=== PATIENT | female | born 1945 | race Caucasian/White ===

== ENCOUNTER → 2018-10-21 11:01 | Outpatient (CLI) | payer MEDICARE, SELFPAY ==
--- NOTE | 2018-10-21 11:16 | VDLE_ITS ---
Reason For Study: LLE Pain RIGHT LEFT CFV is compressible, spontaneous, phasic, GSV is normal. competent and demonstrates normal Acute deep vein thrombosis is noted in the augmentation. left common femoral vein. Procedure Acute deep vein thrombosis is noted in the Exam performed in department. left femoral vein. A preliminary report was called and/or faxed Acute deep vein thrombosis is noted in the to [facility] office and [facility] office. left popliteal vein. Acute deep vein thrombosis is noted in the left peroneal vein. Acute deep vein thrombosis is noted in the left posterior tibial vein. Peroneal veins not well visualized. Interpretation Summary Acute deep venous thrombosis left common femoral, femoral, popliteal, peroneal and posterior tibial veins. Normal flow patterns right common femoral vein Patent and compressible left great saphenous vein Ordering Physician: Sonny Andrew Referring Physician: MD Tien Vivar Performed By: Margi Whitley RVT
== END ==
PROVIDERS: Family Provider Preventive Medicine Occupational Medicine; PCP Preventive Medicine Occupational Medicine; Referring Provider Physician Assistant Surgical; Visit Provider Physician Assistant Surgical
DX: M79.605 Pain in left leg (principal)
CPT/HCPCS: 93971

== ENCOUNTER 2018-10-21 12:47 | Emergency (ER) | payer MEDICARE, SELFPAY ==
[2018-10-21 12:48] VITALS: BP 167/90; PULSE 80; RESP 18; TEMP 37.2; O2SAT 98; BMI 35.4
--- NOTE | 2018-10-21 14:29 | CASEMGMT ---
Case Management Progress Note: This group underwriter s/w ER Dr Rucker and states patient with Dx DVT and wanting to verify if patient's insurance covers Lovenox. This group underwriter pulled up [employer] Drug List and appears the Generic Enoxaparin sodium is covered. This Automatic Nailing Machine Operator called [employer] , s/w Naomi and verified that the list is correct and the Brand Lovenox is not covered but the Generic Enoxaparin Sodium is covered, Dr Rucker made aware. Mar James RNCM
[2018-10-21] MEDS: Enoxaparin 100 MG/ML Syringe SC (15:17)
--- NOTE | 2018-10-21 15:26 | ED.DCSUM_ITS ---
- ER Visit Summary Date of Service: 10/21/18 Chief Complaint: DVT History of Present Illness: The patient is a 73 F with history of DVTs. She is been on Xarelto for the last year and a half. She was on Coumadin prior to this but states that there was difficulty regulating her INR. She was off Xarelto for 2 days to have a left hip replacement performed 13 days ago. She states Xarelto was then restarted immediately. On review of notes it appears that she was restarted on 20 mg daily. Patient was seen by orthopedics this morning. Surgical site is okay. She was sent for a DVT study due to increased foot and ankle swelling. Patient states she has chronic leg swelling and chronic leg redness that is unchanged from baseline. She denies chest pain or shortness of breath. Physical Examination: Blood pressure is 167/90, otherwise unremarkable. Patient is sitting in her wheelchair. She is in no acute distress. Heart is regular rate and rhythm. Lung sounds clear. Abdomen is soft and nontender. Lower extremity examination reveals 3+ edema on the left lower extremity. She has chronic venous skin changes of the lower leg. She has strong distal pulses. Test Results: [] Emergency Department Course and Treatment: Patient had been sent in for DVT study by orthopedics. That study I have told showed a clot from her groin to her ankle. I spoke with the patient's primary care physician, Dr. Bellamy. He had spoken with the PA for orthopedics. They had sent the patient in for probable admission until anticoagulation can be better managed. I spoke with Dr. Laura, on-call for hematology. He recommends putting the patient on Lovenox twice daily for the next 6 weeks then restarting Xarelto. He does not believe there is a strong indication to admit the patient to the hospital. We have checked with the patient's insurance company and medication will be covered. Patient and have been taught how to do the injections. Dr. Bellamy was updated with the plan as well and is in agreement. Treatment Plan: [] Disposition: Discharge Impression: Left lower extremity DVT status post hip replacement This note was generated with [employer] software. It may contain incorrect words, spelling, and punctuation that were not noted in review of the chart prior to signing ED Disposition - Plan for ED Patient: Disposition: Home or Assisted Living Instructions: ED DVT Prescriptions: Enoxaparin [Lovenox] 100 mg SC Q12@0600,1800 #84 syringe Referrals: Tien Vivar DO [Primary Care Provider] - 1 Week Additional Instructions: STOP YOUR XARELTO. For the next 6 weeks you will be taking enoxaparin (Lovenox) shots instead.
== END 2018-10-21 16:03 | disposition home or self-care (01) ==
PROVIDERS: Emergency Provider Emergency Medicine; Family Provider Preventive Medicine Occupational Medicine; PCP Preventive Medicine Occupational Medicine
DX: I82.402 Acute embolism and thrombosis of unspecified deep veins of left lower extremity (principal); H35.30 Unspecified macular degeneration; Z79.01 Long term (current) use of anticoagulants; Z79.899 Other long term (current) drug therapy; Z86.718 Personal history of other venous thrombosis and embolism; Z96.642 Presence of left artificial hip joint
CPT/HCPCS: 93971; 96372; 99282

== ENCOUNTER → 2021-12-12 04:40 | Outpatient (REF) | payer MEDICARE, MEDICAID, SELFPAY ==
[2021-12-12 08:08] LABS: Valproic Acid (Depakene) Level 79 ug/mL (50-100)
== END ==
LOC: OLS.WCC 04:40
PROVIDERS: PCP Preventive Medicine Occupational Medicine; Referring Provider Family Medicine; Visit Provider Family Medicine
DX: Z79.899 Other long term (current) drug therapy (principal)
CPT/HCPCS: 36415; 80164

== ENCOUNTER → 2021-12-13 04:00 | Outpatient (REF) | payer MEDICARE, MEDICAID, SELFPAY ==
[2021-12-13 09:29] LABS: Hematocrit 35.7 % (37-47); Hemoglobin 11.6 g/dL (12.0-15.0); Mean Corp Hgb Conc 32.5 g/dL (32-36); Mean Corpuscular Volume 98.3 fL (81-99); Platelet Count 183 K/mm3 (150-450); RBC Distribution Width CV 16.9 % (11.6-14.6); RBC Distribution Width SD 61.3 fl (35.1-43.9); Red Blood Count 3.63 M/mm3 (4.2-5.4); White Blood Count 10.5 K/mm3 (4.4-11.0)
[2021-12-13 09:40] LABS: Anion Gap 7 (5-15); BUN 20 mg/dL (7-18); Calcium,Total 9.5 mg/dL (8.5-10.1); Chloride 101 mmol/L (98-107); Creatinine, Serum 0.71 mg/dL (0.55-1.02); EST Glomerular Filtration Rate 84 mL/min (>60); Est Glom Filt Rate - Afr Amer 102 mL/min (>60); Glucose 99 mg/dL (74-106); Potassium 3.8 mmol/L (3.5-5.1); Sodium Level 139 mmol/L (136-145)
== END ==
LOC: OLS.WCC 04:00
PROVIDERS: PCP Preventive Medicine Occupational Medicine; Visit Provider Family Medicine
DX: E87.6 Hypokalemia (principal); E83.42 Hypomagnesemia; E56.9 Vitamin deficiency, unspecified
CPT/HCPCS: 36415; 80048; 85027

== ENCOUNTER 2021-12-17 04:30 | Inpatient (IN) | payer MEDICARE, MEDICAID, SELFPAY ==
[2021-12-17] VITALS (45 sets, daily range): BP systolic 58–159; BP diastolic 22–98; PULSE 77–114; RESP 15–32; TEMP 35.9–36.6; O2SAT 91–100; BMI 35.0; BMI 34.2
--- NOTE | 2021-12-17 04:35 | EKG12_ITS ---
Test Reason : DYSRHYTHMIA Blood Pressure : / mmHG Vent. Rate : 088 BPM Atrial Rate : 088 BPM P-R Int : 144 ms QRS Dur : 092 ms QT Int : 372 ms P-R-T Axes : 052 018 023 degrees QTc Int : 450 ms Normal sinus rhythm Nonspecific ST abnormality Abnormal ECG Confirmed by SIVAKUMAR SPEARS, LOCO ([id number]), society editor JENNIFER BLOUNT ([id number]) on 12/19/2021 11:02:07 AM Referred By: KOLE Confirmed By:LOCO SHAVER MD
--- NOTE | 2021-12-17 04:35 | CT_ITS ---
STUDY: CT BRAIN WITHOUT CONTRAST REASON FOR EXAM: Female, 76 years old. mental status change RADIATION DOSAGE (If Supplied By Facility): CTDIvol = ( 44.99 ) mGy, DLP = ( 914.22 ) mGycm TECHNIQUE: Transaxial CT imaging of the brain was performed without administration of intravenous contrast material. Individualized dose optimization techniques were used for this CT. COMPARISON: No relevant priors. FINDINGS: BRAIN: No acute bleed. No edema. Decreased attenuation in the periventricular white matter bilaterally. Old lacunar infarct in the left basal ganglia versus prominent perivascular space. Dorsey-white matter differentiation is maintained. VENTRICLES AND SULCI: The ventricles and sulci are prominent. EXTRA-AXIAL: No hemorrhage, fluid collection, or mass. CALVARIUM / SKULL BASE: Unremarkable. FACE/SINUSES: Mastoid air cells on the right are opacified, minimally opacified on the left. The paranasal sinuses are clear.. SOFT TISSUES: Unremarkable. CT/Brain/Head without Contrast IMPRESSION: No acute intracranial abnormality. Chronic microvascular ischemic disease. Bilateral mastoid disease, greater on the right. Electronically Signed: Karen Alves MD at 5:18 EDT ,
--- NOTE | 2021-12-17 04:37 | EDS_ITS ---
HPI History of Present Illness Chief Complaint: Alt LOC Detail of Chief Complaint: Patient with altered level of consciousness and dyspnea Informant: EMS and SNF Narrative Narrative: Patient presents to the emergency department via EMS from extended care facility. Patient was being checked on by nursing staff and noted that she was having increased respirations and low oxygen saturation down to 85%. Nurses contacted physician on-call and was ordered 2 L of nasal cannula O2. Patient continued to have increased respirations and was referred to the emergency department. Patient normally alert x1 only. Patient is on Xarelto. She is unable to give me any history. [facility] Medical History (Updated 12/17/21 @ 05:[address] Surjit Pearce, DO) Depression with anxiety GERD (gastroesophageal reflux disease) History of venous thromboembolism Hypertension Obesity Seizures Home Medications ascorbic acid (vitamin C) 500 mg tablet (Vitamin C) 500 mg PO BID 10/21/18 [History Last Taken Unknown] calcium carbonate 600 mg calcium (1,500 mg) tablet 800 mg PO BID 10/21/18 [History Last Taken Unknown] cyanocobalamin (vitamin B-12) 500 mcg tablet 500 mcg PO DAILY 10/21/18 [History Last Taken Unknown] divalproex 500 mg tablet,delayed release (Depakote) 500 mg PO TID 10/21/18 [History Last Taken Unknown] enoxaparin 100 mg/mL subcutaneous syringe 100 mg subcut Q12@0600,1800 ##84 10/21/18 [Rx Last Taken Unknown] methylcellulose (laxative) 500 mg tablet (Fiber Laxative (methylcellulose)) 500 mg PO DAILY 10/21/18 [History Last Taken Unknown] omega 7-spy-ibo-fish oil 900 mg-1,400 mg capsule,delayed release (Fish Oil) 1 ea PO DAILY 10/21/18 [History Last Taken Unknown] rivaroxaban 20 mg tablet (Xarelto) 20 mg PO DAILY 10/21/18 [History Last Taken Unknown] zinc gluconate 50 mg tablet 50 mg PO DAILY 10/21/18 [History Last Taken Unknown] Allergy/AdvReac Type Severity Reaction Status Date / Time Penicillins Allergy Unknown Verified 10/21/18 12:51 Sulfa (Sulfonamide Allergy Unknown Verified 10/21/18 12:51 Antibiotics) Surgical History (Updated 12/17/21 @ 04:[address] Shawna Yanez MD) History of left hip hemiarthroplasty History of total left hip replacement S/P tonsillectomy and adenoidectomy Social History (Updated 12/17/21 @ 04:[address] Shawna Yanez MD) household members: spouse Smoking Status: Never smoker alcohol intake: never substance use type: does not use ROS ROS ED Review of Systems ROS Unobtainable: due to mental status EXAM Physical Exam Narrative Exam Narrative: Patient with eyes open but not following commands. Const Vital Signs: 12/17/21 04:31 12/17/21 04:39 Temperature 96.6 F L Temperature Source Temporal Pulse Rate 98 Respiratory Rate 16 Respiratory Effort Normal Non-Labored Respiratory Pattern Tachypnea Blood Pressure 93/44 L Blood Pressure Mean 60 Pulse Ox 97 Oxygen Delivery Method Room Air Positive well nourished and well developed General Appearance ED: well developed and NAD HEENT Reports TM's clear and moist mucous membranes normocephalic and atraumatic; Negative for trauma or tenderness Tympanic Membrane ED: Yes TM's clear Eyes PERRL and EOMs intact bilaterally General Eye ED: Negative for pale conjunctiva or scleral icterus Neck no lymphadenopathy, supple and no JVD General: Negative for tenderness Chest Wall inspection of chest normal and palpation of chest normal Chest: Negative for tenderness Resp normal respiratory effort and No clear to auscultation bilaterally Resp Narrative: Patient with few rales in the bases. Mild tachypnea. No accessory muscle use or retractions. Effort and Inspection: Negative for respiratory distress or pain with movement Auscultation: Negative for rhonchi, wheezes or diminished lung sounds Cardio regular rate, regular rhythm, S1 normal heart sound and S2 normal heart sound Cardio Narrative: Patient with a 3 out of 6 systolic ejection murmur. Peripheral Pulses: pulses 2+ throughout GI normal to inspection, nondistended, normoactive bowel sounds, soft to palpation, non-tender, non-distended and no masses Back/Spine no CVA tenderness and no thoracic nor lumbar tenderness Extremity normal to inspection Extremity Narrative: +2 edema both lower extremities. General Extremety ED: Yes edema General Extremity: edema Neuro oriented x3, CN's II-XII intact bilaterally, no sensory deficits noted and gait normal Sensorium / Orientation: awake, alert, oriented to person, oriented to place and oriented to time Motor Exam: strength 5/5 throughout and strength abnormal Psych mental status grossly normal Skin no rashes or lesions noted and no wounds MDM MDM MDM Narrative Medical decision making narrative: IV line established on arrival. Patient received a liter normal saline fluid bolus. Patient had times of transient hypotension. Patient has an elevated white count of 18.2. Chemistries unremarkable. Lactate was 1.0. Troponin was normal at 47. BNP was elevated at 856. Valproic acid level was 96. CT scan of the brain without contrast was unremarkable. Patient chest x-ray showed no acute disease process. Patient did have episode of watery foul-smelling stool and that was sent off for C. difficile as well as enteric pathogens. Case will be discussed with hospitalist evaluate patient for admission Lab Data Attestation: I reviewed the patient's lab results. Labs: Laboratory Results - last 24 hr 12/17/21 12/17/21 12/17/21 04:42 04:42 04:42 WBC 18.2 H RBC 3.17 L Hgb 10.3 L Hct 31.2 L MCV 98.4 MCH 32.5 H MCHC 33.0 RDW Std Deviation 56.3 H RDW Coeff of Erica 15.8 H Plt Count 218 MPV 9.7 Neut % (Auto) Not Reportable Absolute Neuts (auto) 15.5 H Absolute Lymphs (auto) 0.55 L Total Counted 100 Neutrophils % (Manual) 51 Band Neutrophils % 18 H Lymphocytes % (Manual) 3 L Monocytes % (Manual) 12 H Metamyelocytes % 10 H Myelocytes % 6 H Diff Path Review May foll Platelet Estimate ADEQUATE RBC Morphology NORM C+C Sodium 136 Potassium 3.5 Chloride 100 Carbon Dioxide 28.0 Anion Gap 8 BUN 42 H Creatinine 1.13 H Estim Creat Clear Calc 44.37 Est GFR (MDRD) Af Amer 60 Est GFR (MDRD) Non-Af 50 L BUN/Creatinine Ratio 37.2 H Glucose 145 H Lactic Acid 1.0 Calcium 8.3 L Total Bilirubin 0.50 AST 28 ALT 20 Alkaline Phosphatase 57 Troponin I High Sens 47 B-Natriuretic Peptide Total Protein 5.4 L Albumin 1.8 L Globulin 3.6 Albumin/Globulin Ratio 0.5 L Valproic Acid 12/17/21 12/17/21 04:42 04:42 WBC RBC Hgb Hct MCV MCH MCHC RDW Std Deviation RDW Coeff of Erica Plt Count MPV Neut % (Auto) Absolute Neuts (auto) Absolute Lymphs (auto) Total Counted Neutrophils % (Manual) Band Neutrophils % Lymphocytes % (Manual) Monocytes % (Manual) Metamyelocytes % Myelocytes % Diff Path Review Platelet Estimate RBC Morphology Sodium Potassium Chloride Carbon Dioxide Anion Gap BUN Creatinine Estim Creat Clear Calc Est GFR (MDRD) Af Amer Est GFR (MDRD) Non-Af BUN/Creatinine Ratio Glucose Lactic Acid Calcium Total Bilirubin AST ALT Alkaline Phosphatase Troponin I High Sens B-Natriuretic Peptide 856.5 H Total Protein Albumin Globulin Albumin/Globulin Ratio Valproic Acid 96 Radiography Chest X-Ray - ED: 1 View Diagnostic Testing: Clinical Impression(s) from Imaging Studies Brain CT 12/17/21 04:35 IMPRESSION: No acute intracranial abnormality. Chronic microvascular ischemic disease. Bilateral mastoid disease, greater on the right. Electronically Signed: Karen Alves MD at 5:18 EDT , Chest X-Ray 12/17/21 04:51 IMPRESSION: No evidence of active intrathoracic disease. Electronically Signed: Karen Alves MD at 5:23 EDT , 1 view chest x-ray obtained interpreted by myself as no acute disease process. Radiology in agreement. EKG Initial EKG: Attestation: I personally reviewed and interpreted this EKG as follows: Comments: Sinus rhythm with a ventricular rate of [address] changes Discharge Plan Triage Chief Complaint: Alt LOC Other Complaint: Shortness of Breath ED Provider: Surjit Pearce Dx/Rx/DC Orders Clinical Impression: Altered mental status, Diarrhea, Acute dehydration, Hypoxemia, Weakness Prescriptions: No Action divalproex [Depakote] 500 MG Tablet.Dr 500 mg PO TID calcium carbonate 600 MG tablet 800 mg PO BID cyanocobalamin (vitamin B-12) 500 MCG tablet 500 mcg PO DAILY ascorbic acid (vitamin C) [Vitamin C] 500 MG tablet 500 mg PO BID methylcellulose (laxative) [Fiber Laxative (methylcellulo)] 500 MG tablet 500 mg PO DAILY zinc gluconate 50 MG tablet 50 mg PO DAILY omega 1-kxa-grw-fish oil [Fish Oil] 1 EACH Capsule. 1 jordan PO DAILY rivaroxaban [Xarelto] 20 MG tablet 20 mg PO DAILY enoxaparin 100 MG/ML syringe 100 mg subcut Q12@0600,1800 Qty: 84 0RF Primary Care Provider: Tien Vivar Referrals: Tien Vivar DO [Primary Care Provider] - Disposition Disposition: Acute Care Hospital [facility]
[2021-12-17 04:51] LABS: Hematocrit 31.2 % (37-47); Hemoglobin 10.3 g/dL (12.0-15.0); Mean Corpuscular Hgb 32.5 pg (27.0-32.0); Mean Corpuscular Volume 98.4 fL (81-99); Mean Platelet Vol. 9.7 fl (6.2-12.0); POSITIVE DIFFERENTIAL YES; Platelet Count 218 K/mm3 (150-450); RBC Distribution Width CV 15.8 % (11.6-14.6); RBC Distribution Width SD 56.3 fl (35.1-43.9); Red Blood Count 3.17 M/mm3 (4.2-5.4); White Blood Count 18.2 K/mm3 (4.4-11.0)
--- NOTE | 2021-12-17 04:51 | RAD_ITS ---
STUDY: X-RAY CHEST REASON FOR EXAM: Female, 76 years old. dyspnea TECHNIQUE: AP portable. 4:44 AM. COMPARISON: None. FINDINGS: LUNGS: No consolidation. No pneumothorax. MEDIASTINUM: Aortic atherosclerotic. CARDIAC SILHOUETTE: Top normal size for technique. BONES AND SOFT TISSUES: Degenerative changes dorsal spine and shoulders. RAD/Chest 1 View (Portable) IMPRESSION: No evidence of active intrathoracic disease. Electronically Signed: Karen Alves MD at 5:23 EDT ,
[2021-12-17] MEDS: 0.9% Normal Saline 1,000 ML 999 ML IV ×2 (05:15→05:45)
[2021-12-17 05:16] LABS: ALB/GLOB Ratio 0.5 RATIO (0.9-2.4); AST(SGOT) 28 U/L (15-37); Alanine Aminotransfer ALT/SGPT 20 U/L (13-56); Albumin, Serum 1.8 g/dL (3.2-5.0); Alkaline Phosphatase 57 U/L (45-117); Anion Gap 8 (5-15); BUN 42 mg/dL (7-18); BUN/Creat Ratio 37.2 RATIO (10-20); Calcium,Total 8.3 mg/dL (8.5-10.1); Chloride 100 mmol/L (98-107); Creatinine, Serum 1.13 mg/dL (0.55-1.02); EST Glomerular Filtration Rate 50 mL/min (>60); Est Glom Filt Rate - Afr Amer 60 mL/min (>60); Estimated Creatinine Clearance 44.37 ml/min; Globulin 3.6 g/dL (2.2-4.2); Glucose 145 mg/dL (74-106); Potassium 3.5 mmol/L (3.5-5.1); Protein, Total 5.4 g/dL (6.4-8.2); Sodium Level 136 mmol/L (136-145); Troponin-I HS (w/2H Reflex) 47 pg/mL (3.0-54.0)
[2021-12-17 05:17] LABS: BNP,B-Type NATRIURETIC PEPTIDE 856.5 pg/mL (0-100)
[2021-12-17 05:18] LABS: Differential Indicated MANUAL DIFF
[2021-12-17 05:23] LABS: Lymphocyte 3 % (19-41); Metamyelocyte 10 % (0-1); Monocyte 12 % (0-10); Myelocyte 6 % (0-0); Neutrophil-Band 18 % (0-5); Neutrophil-Segmented 51 % (47-70); Total Cells Counted 100 (MANUAL DIFF)
[2021-12-17 05:24] LABS: Neutrophil # 15.46 X10^3/uL (2.7-7.7)
[2021-12-17 05:25] LABS: Absolute Lymphocyte Count 0.55 X10^3/uL (0.83-4.51); Absolute Neutrophil Count 15.5 X10^3/uL (2.0-7.7); Lymphocyte # 0.55 X10^3/ul (0.83-4.51); Platelet Estimate ADEQUATE (ADEQ)
[2021-12-17 05:26] LABS: Red Cell Morphology NORM C+C NORMAL (NORM C&C)
[2021-12-17 05:33] LABS: Mucous, Urine 0 SEEN /hpf (<or=2+); Squamous Epithelial Cells - UA 0 SEEN /hpf (5-10)
[2021-12-17 05:39] LABS: Valproic Acid (Depakene) Level 96 ug/mL (50-100)
[2021-12-17 05:55] LABS: Color, Urine Yellow (Yellow); Glucose, Dipstick NEGATIVE (Normal); Urine Bilirubin Dipstick 1 mg/dL (Negative); Urine Clarity Turbid (Clear)
[2021-12-17 05:56] LABS: Bacteria 4+ /hpf (None Seen); Ketone-Dipstick 5 mg/dl (Negative); Leukocyte Esterase-Dipstick 500 /ul (Negative); Nitrite-Dipstick Negative (Negative); Occult Blood-Urine 150 /ul (Negative); Protein-Dipstick 100 mg/dl (Negative); Red Blood Cells-Urine 0-5 SEEN /hpf (0-5); Specific Gravity, Urine 1.015 (1.002-1.030); Urine Urobilinogen 4 mg/dl (Normal); White Blood Cells >100 SEEN /hpf (0-5)
--- NOTE | 2021-12-17 05:59 | PCM.HP.STD ---
HPI - General General Date of Admission: 12/17/21 Date of Service: 12/17/21 Chief Complaint: Encephalopathy, Diarrhea. HPI Narrative The patient is a 76 y/o F w/ PMHx: Seizure disorder, Hx VTE on xarelto, HTN, Obesity, Anxiety and Depression, GERD who presents to the [facility] ED from SNF on 12/17/21 with history of confusion and noted hypoxia with increased respiratory rate with oxygen saturations down to 85% at her facility prompting nurses to contact the on-call physician who ordered supplementation and referral to ED for evaluation. Patient baseline is ANO x1. While in the emergency room patient was noted to have profound diarrhea, foul smelling and profuse. Work-up in the ED included T96.6, heart rate 98, BP 93/44, respiratory rate 16, 97% on room air despite concerns for hypoxia at facility, CBC with WBC 18.2, hemoglobin 10.3, platelet 218 without differential performed, CMP with BUN/42/1.13, glucose 145, unremarkable hepatic profile, troponin 47, BNP 856.5, lactic acid 1.0, blood culture x2 pending per ED, chest x-ray with no acute cardiopulmonary findings, CT brain with no acute intracranial abnormality with chronic microvascular ischemic disease with bilateral mastoid disease, greater on the right, EKG SR without acute evidence of ischemia, valproic acid level 96, C. difficile and enteric pending upon evaluation. Patient being administered NS bolus currently. [facility] Medical History (Updated 12/17/21 @ 05:[address] Surjit Pearce, ) Depression with anxiety GERD (gastroesophageal reflux disease) History of venous thromboembolism Hypertension Obesity Seizures Home Medications divalproex 500 mg tablet,delayed release (Depakote) 500 mg PO TID 10/21/18 [History Last Taken Unknown] rivaroxaban 20 mg tablet (Xarelto) 20 mg PO DAILY 10/21/18 [History Last Taken Unknown] zinc gluconate 50 mg tablet 50 mg PO DAILY 10/21/18 [History Last Taken Unknown] alprazolam 0.25 mg tablet 0.25 mg PO BID 12/17/21 [History Last Taken Unknown] buspirone 7.5 mg tablet 7.5 tab TID 12/17/21 [History Last Taken Unknown] carvedilol 3.125 mg tablet 3.125 tab DAILY 12/17/21 [History Last Taken Unknown] lacosamide 200 mg tablet (Vimpat) 200 mg PO BID 12/17/21 [History Last Taken Unknown] mirtazapine 15 mg tablet (Remeron) 15 mg PO QHS 12/17/21 [History Last Taken Unknown] pantoprazole 40 mg tablet,delayed release 40 tab PO BID 12/17/21 [History Last Taken Unknown] Allergy/AdvReac Type Severity Reaction Status Date / Time Penicillins Allergy Unknown Verified 12/17/21 06:09 Sulfa (Sulfonamide Allergy Unknown Verified 12/17/21 06:09 Antibiotics) Family History (Updated 12/17/21 @ 06:[address] Shawna Yanez MD) Mother Heart disease Father Heart disease Surgical History (Updated 12/17/21 @ 04:[address] Shawna Yanez MD) History of left hip hemiarthroplasty History of total left hip replacement S/P tonsillectomy and adenoidectomy Social History (Updated 12/17/21 @ 06:[address] Shawna Yanez MD) housing: assisted Smoking Status: Never smoker alcohol intake: never substance use type: does not use ROS Review of Systems ROS Unobtainable: due to encephalopathy Vital Signs Vital Signs Vital Signs: 12/17/21 04:31 12/17/21 04:39 Temperature 96.6 F L Temperature Source Temporal Pulse Rate 98 Respiratory Rate 16 Respiratory Effort Normal Non-Labored Respiratory Pattern Tachypnea Blood Pressure 93/44 L Blood Pressure Mean 60 Pulse Ox 97 Oxygen Delivery Method Room Air Weight Weight: 244 lb 4.355 oz Body Mass Index (BMI) 35.0 Physical Exam Narrative hysical Examination: General: Comatose in appearance, but upon questioning although garbled with dry mouth was able to answer some questions, could give her name, could not tell year, month, present but baseline ANOx1 per facility, following some commands now, severely dehydrated appearance, seated upright in the ED bed. Skin: Normal color, normal turgor, no icterus, no cyanosis except occasional staged ecchymoses and BL LE, L>R chronic venous stasis skin changes. HEENT: AT/NC, EOM appear intact, PERRLA except L>R pupil by ~ 2 mm, severely dry MM, no carotid bruits, normal JVD noted. Lungs: Diminished, greater bases, mildly increased respiratory rate, no distress, no rhonchi or wheezing. Heart: Mildly tachycardic with regular rhythm; no gallop, rub audible, + SM. Abdomen: Soft, mild generalized discomfort with palpation, ND, hyperactive BS, no HSM. Extremities: No cyanosis, no clubbing, bilateral lower extremity 1-2+ pitting edema noted, see skin, suspect chronic. Neurological: Comatose in appearance, but upon questioning although garbled with dry mouth was able to answer some questions, could give her name, could not tell year, month, present but baseline ANOx1 per facility, following some commands now, severely dehydrated appearance, seated upright in the ED bed, cognitive function decreased from baseline but improving as noted, baseline ANO x1 status only; pupils equally reactive to light and accommodation with L>R pupil by ~ 2 mm, cranial nerves grossly normal otherwise, moving all 4 extremities, strength severely global decrease secondary to acute presentation. Psychiatric: Affect appears fatigued, flat, mentation improving, no acute evidence of depressive or anxiety feelings. Results Lab / Micro Data Result Diagrams: 12/17/21 04:42 12/17/21 04:42 Labs: Laboratory Results - last 24 hr 12/17/21 04:42: WBC 18.2 H, RBC 3.17 L, Hgb 10.3 L, Hct 31.2 L, MCV 98.4, MCH 32.5 H, MCHC 33.0, RDW Std Deviation 56.3 H, RDW Coeff of Erica 15.8 H, Plt Count 218, MPV 9.7, Neut % (Auto) Not Reportable, Absolute Neuts (auto) 15.5 H, Absolute Lymphs (auto) 0.55 L, Total Counted 100, Neutrophils % (Manual) 51, Band Neutrophils % 18 H, Lymphocytes % (Manual) 3 L, Monocytes % (Manual) 12 H, Metamyelocytes % 10 H, Myelocytes % 6 H, Diff Path Review May , Platelet Estimate ADEQUATE, RBC Morphology NORM C+C 12/17/21 04:42: Sodium 136, Potassium 3.5, Chloride 100, Carbon Dioxide 28.0, Anion Gap 8, BUN 42 H, Creatinine 1.13 H, Estim Creat Clear Calc 44.37, Est GFR (MDRD) Af Amer 60, Est GFR (MDRD) Non-Af 50 L, BUN/Creatinine Ratio 37.2 H, Glucose 145 H, Calcium 8.3 L, Total Bilirubin 0.50, AST 28, ALT 20, Alkaline Phosphatase 57, Troponin I High Sens 47, Total Protein 5.4 L, Albumin 1.8 L, Globulin 3.6, Albumin/Globulin Ratio 0.5 L 12/17/21 04:42: Lactic Acid 1.0 12/17/21 04:42: B-Natriuretic Peptide 856.5 H 12/17/21 04:42: Valproic Acid 96 12/17/21 05:20: Urine Color Yellow, Urine Clarity Turbid, Urine pH 6.0, Ur Specific [place] 1.015, Urine Protein 100 H, Urine Glucose (UA) NEGATIVE, Urine Ketones 5 H, Urine Occult Blood 150 H, Urine Nitrite Negative, Urine Bilirubin 1 H, Urine Urobilinogen 4 H, Ur Leukocyte Esterase 500 H, Urine RBC 0-5 SEEN, Urine WBC >100 SEEN, Ur Squamous Epith Cells 0 SEEN, Urine Bacteria 4+, Urine Mucus 0 SEEN Micro: Microbiology 12/17/21 05:26 Nasal Secretion SARS-CoV-2 Antigen (Rapid) - Final Radiology Impression Brain CT 12/17/21 04:35 IMPRESSION: No acute intracranial abnormality. Chronic microvascular ischemic disease. Bilateral mastoid disease, greater on the right. Electronically Signed: Karen Alves MD at 5:18 EDT Reading Location ID and State: [facility] / [place] Tel , Service support , Chest X-Ray 12/17/21 04:51 IMPRESSION: No evidence of active intrathoracic disease. Electronically Signed: Karen Alves MD at 5:23 EDT , Assessment & Plan Assessment/Plan (1) Diarrhea: (2) Altered mental status: PLAN: Plan The patient is a 76 y/o F w/ PMHx: Seizure disorder, Hx VTE on xarelto, HTN, Obesity, Anxiety and Depression, GERD who presents to the [facility] ED from SNF on 12/17/21 with history of confusion and noted hypoxia with increased respiratory rate with oxygen saturations down to 85% at her facility prompting nurses to contact the on-call physician who ordered supplementation and referral to ED for evaluation with normalization oxygenation on room air upon ED presentation and onset profuse foul smelling diarrhea. #1. Acute Encephalopathy and Hypotension secondary to Acute infectious gastroenteritis, possible C. difficile w/ Acute Dehydration: Although patient was reportedly hypoxic facility she currently 97% on room air at ED evaluation, CBC with notable WBC elevation, hypotensive, suspect may be GI losses, will admit to PCU, continue aggressive hydration, pending C. difficile per ED, will additionally add stool enteric, given concern for C. difficile colitis will place on vancomycin if oral intake safe with de-escalation off if study negative, as needed anti-emetics, pain regimen PRN. #2. Hyperglycemia: Admission glucose 145, possibly stress response, hemoglobin A1c requested. #3. Acute Kidney Injury secondary to GI losses, #1: Admission BUN/Cr 42/1.13, notably increased from recent 12/13/21 0.71, continue aggressive hydration, hold nephrotoxic regimen, if ongoing WINDY obtain UFeNa, renal US. #4. Acute Urinary Tract Infection: UA upon ED evaluation remarkable, pending UCx, continue IVFs, monitor I/Os, continue IV Rocephin w/ transition as able pending sensitivities and speciation with quic de-escalation given #1, possible c-diff. Bld cx x 2 obtained in the ED. #5. History of VTE (PE, DVT): Extensive VTE history, previously had been on Coumadin and eventually transition to Xarelto, will continue. #6. Hypertension: Hold home norvasc given hypotension, add back once appropriate. #7. Seizure disorder: We will continue patient home Depakote, Vimpat home regimen. From review of prior records patient had been on phenobarb prior to Vimpat usage. #8. Anxiety and depression: We will continue patient home mirtazapine, sertraline and BuSpar regimen. #9. Obesity: Weight loss and lifestyle changes encouraged. #10. GERD: We will continue patient on PPI. #11. Chronic anemia, normocytic: Admission Hgb 10.3, baseline prior noted 11.6, will continue to hydrate as noted, repeat CBC in AM. #12. DVT prophylaxis: SCDs, continue home Xarelto regimen. #13. CODE status: DNR-CCA, no intubation per facility paperwork. Charges/Coding Visit Charges Inpatient E&M: 84471 Init Hosp L3
[2021-12-17] MEDS: Ceftriaxone 1 GM/50 ML BAG IV (06:25)
[2021-12-17 06:48] LABS: Reflex Troponin-HS? (from REC) Y
[2021-12-17 07:10] LABS: Magnesium 2.2 mg/dL (1.6-2.6); Phosphorus 3.1 mg/dL (2.5-4.9)
[2021-12-17 08:32] LABS: Troponin-I HS 38 pg/mL (3.0-54.0)
[2021-12-17] MEDS: metroNIDAZOLE 500 MG/100 ML BAG 100 MG IV ×3 (09:10→23:50)
--- NOTE | 2021-12-17 10:00 | NURSING ---
patient placed on Levophed. Levophed is running through a peripheral IV at this time and is maxed out on 10mcg. Phone call placed to son José and he is agreeable to her getting a PICC line at this time. Medication will be titrated after PICC line placed per Dr Sandoval.
--- NOTE | 2021-12-17 12:44 | PN.HOSP_ITS ---
Hospitalist Note Patient was seen and examined today, she is somnolent, I talked to her [id number] was at the bedside today, patient initially had required Le vophed when she was admitted to the ICU, since then we have been able to taper it down and may be able to stop it altogether. I am going to have a PICC line placed just in case we need pressor support again. We are awaiting the patient's stool C. difficile result at this time. For now I have the patient on IV Flagyl. I had a discussion with the patient's son who is her POA, he states the patient does have a history of cognitive impairment but a diagnosis of dementia really has not been confirmed. Patient's 3 years ago. Patient is a DNR CC arrest without intubation, patient's son stated that he did not want aggressive care including central line. For now we will treat the patient with IV antibiotics and fluid administration if needed, pressors will be used if needed.
--- NOTE | 2021-12-17 14:28 | RAD_ITS ---
INDICATION: picc line placement EXAMINATION/TECHNIQUE: X-RAY - XR Chest 1 View COMPARISON: 12/17/2021. FINDINGS: The lungs are clear. Tortuous and calcified thoracic aorta. The heart is borderline enlarged. Interval placement of left-sided PICC with tip in the low SVC. No pleural effusion or pneumothorax. Degenerative changes of the thoracic spine and shoulders. RAD/CXR for Line Placement IMPRESSION: Interval placement of left-sided PICC with tip in the low SVC. Electronically Signed: Garrison Kay MD at 17:24 EDT ,
--- NOTE | 2021-12-17 14:58 | CASEMGMT ---
Addendum entered by Margi Garza 12/17/21 16:01: ARABELLA placed Green Sheet, transport forms, COVID tool on pt's chart. Original Note: Social Work Note ARABELLA reviewed chart, pt is listed as being from [facility]. Pt has Medicare and Medicaid insurance, should be able to return to [facility] when medically cleared. ARABELLA placed a call to [facility] and spoke with Anabel. 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 Margi Garza [employer]INTER [employer]CRA[employer], WOOD PATTERN [employer]KER
[2021-12-18] VITALS (65 sets, daily range): BP systolic 73–160; BP diastolic 30–102; PULSE 67–100; RESP 16–25; TEMP 36.7–37.1; O2SAT 92–100
[2021-12-18] MEDS: 0.9% Saline Lock 10 ML Syringe IV ×3 (04:03→21:57)
[2021-12-18] MEDS: CHLORHEXIDINE GLUC 2% CLOTH 1 EACH TOWELETTE TOPICAL (04:03)
[2021-12-18 04:13] LABS: Hematocrit 29.9 % (37-47); Hemoglobin 9.7 g/dL (12.0-15.0); Mean Corp Hgb Conc 32.4 g/dL (32-36); Mean Corpuscular Hgb 32.4 pg (27.0-32.0); Mean Platelet Vol. 9.9 fl (6.2-12.0); NRBC Flagged by Analyzer 0 % (0-5); POSITIVE DIFFERENTIAL YES; Platelet Count 139 K/mm3 (150-450); RBC Distribution Width CV 15.9 % (11.6-14.6); Red Blood Count 2.99 M/mm3 (4.2-5.4); White Blood Count 23.6 K/mm3 (4.4-11.0)
[2021-12-18 04:21] LABS: Differential Indicated SCAN CRITERIA MET
[2021-12-18 04:30] LABS: ALB/GLOB Ratio 0.4 RATIO (0.9-2.4); AST(SGOT) 23 U/L (15-37); Alanine Aminotransfer ALT/SGPT 18 U/L (13-56); Albumin, Serum 1.6 g/dL (3.2-5.0); Alkaline Phosphatase 63 U/L (45-117); Anion Gap 7 (5-15); BUN 37 mg/dL (7-18); Calcium,Total 7.8 mg/dL (8.5-10.1); Chloride 111 mmol/L (98-107); Creatinine, Serum 0.73 mg/dL (0.55-1.02); EST Glomerular Filtration Rate 82 mL/min (>60); Est Glom Filt Rate - Afr Amer 100 mL/min (>60); Estimated Creatinine Clearance 50.14 ml/min; Globulin 3.6 g/dL (2.2-4.2); Glucose 133 mg/dL (74-106); Potassium 3.3 mmol/L (3.5-5.1); Protein, Total 5.2 g/dL (6.4-8.2); Sodium Level 142 mmol/L (136-145)
[2021-12-18 04:44] LABS: Scan Smear per Review Criteria MANUAL DIFF
[2021-12-18 04:47] LABS: Lymphocyte 6 % (19-41); Metamyelocyte 4 % (0-1); Monocyte 6 % (0-10); Myelocyte 2 % (0-0); Neutrophil-Band 13 % (0-5); Neutrophil-Segmented 69 % (47-70); Total Cells Counted 100 (MANUAL DIFF)
[2021-12-18 04:49] LABS: Platelet Estimate ADEQUATE (ADEQ); Red Cell Morphology NORM C+C NORMAL (NORM C&C)
[2021-12-18 04:50] LABS: Absolute Neutrophil Count 20.8 X10^3/uL (2.0-7.7); Neutrophil # 20.79 X10^3/uL (2.7-7.7)
[2021-12-18 04:51] LABS: Absolute Lymphocyte Count 1.42 X10^3/uL (0.83-4.51); Lymphocyte # 1.42 X10^3/ul (0.83-4.51)
[2021-12-18] MEDS: metroNIDAZOLE 500 MG/100 ML BAG 100 MG IV (05:15)
--- NOTE | 2021-12-18 05:52 | EX.PCM.CONCC ---
Assessment & Plan Assessment/Plan (1) Septic shock: PLAN: Plan RECOMMENDATIONS: 1. Continue empiric antimicrobials, pending finalized culture results. 2. Continue Levophed to maintain a mean arterial pressure at or above 65 mmHg. 3. Continue Xarelto per home regimen. 4. Continue appropriate GI prophylaxis. 5. Encourage incentive spirometer use and mobilize patient as tolerated. IMPRESSIONS: 1. Septic shock Likely secondary to gram-negative urinary tract source of infection with secondary hematogenous spread. The patient has been volume resuscitated and will be continued on Levophed to maintain a mean arterial pressure at or above 65 mmHg. Continue antimicrobials as ordered, pending finalized culture results. 2. Anemia/thrombocytopenia The patient has chronic anemia with thrombocytopenia that is likely consumptive in nature and related to septic shock. Plan to continue to monitor blood counts. There is no indication for transfusion of blood products at this time. 3. Hypokalemia Potassium repletion as ordered. Recheck levels in the morning. 4. History of VTE on Xarelto/unspecified seizure disorder/anxiety/depression Complicates care, management, recovery and prognosis. Continue systemic anticoagulation as ordered. TIME: 33 minutes of critical care time, independent of procedures, was spent addressing the patient's septic shock, anemia, thrombocytopenia, hypokalemia, review of all data and collaboration with the care team. HPI Consult Data Date of Consult: 12/18/21 HPI Narrative Reason for Consultation: Hypotension HPI Narrative: The patient is a 76-year-old female, with a history as outlined below, who presented to the emergency department via EMS on December 17 with altered mentation, hypoxemia and hypotension. The patient currently resides in a assisted facility and was apparently noted to be confused with periodic oxygen desaturations and tachypnea. On presentation to the emergency department, the patient was noted to be afebrile, hypotensive and tachypneic. She was requiring 4 L/min of supplemental oxygen to maintain saturations. Initial laboratory evaluation revealed an elevated white blood cell count to 18,000. 18% bandemia was noted. Chemistry profile was notable for a creatinine of 1.13. Lactate was normal at 1.0. BNP was elevated at 856. Procalcitonin was elevated at 16.3. Urine analysis was negative for nitrites, positive for leukocyte Estrace, urine white blood cells and 4+ urine bacteria. CT head revealed no acute intracranial process. Chest x-ray showed no acute cardiopulmonary process. The patient received supplemental IV fluid hydration and was placed on broad-spectrum antimicrobials. She was subsequently admitted to the medical intensive care unit for further management. Following fluid resuscitation, the patient remained hypotensive and was ultimately placed on vasopressor support to maintain hemodynamic stability. She is currently requiring Levophed at 15 mcg/min. [facility] Medical History (Updated 12/18/21 @ 05:[address] Barrett Melgar, DO) Depression with anxiety GERD (gastroesophageal reflux disease) History of venous thromboembolism Hypertension Obesity Seizures Home Medications divalproex 500 mg tablet,delayed release (Depakote) 500 mg PO TID 10/21/18 [History Last Taken Unknown] rivaroxaban 20 mg tablet (Xarelto) 20 mg PO DAILY 10/21/18 [History Last Taken Unknown] zinc gluconate 50 mg tablet 50 mg PO DAILY 10/21/18 [History Last Taken Unknown] alprazolam 0.25 mg tablet 0.25 mg PO BID 12/17/21 [History Last Taken Unknown] buspirone 7.5 mg tablet 7.5 tab TID 12/17/21 [History Last Taken Unknown] carvedilol 3.125 mg tablet 3.125 tab DAILY 12/17/21 [History Last Taken Unknown] lacosamide 200 mg tablet (Vimpat) 200 mg PO BID 12/17/21 [History Last Taken Unknown] mirtazapine 15 mg tablet (Remeron) 15 mg PO QHS 12/17/21 [History Last Taken Unknown] pantoprazole 40 mg tablet,delayed release 40 tab PO BID 12/17/21 [History Last Taken Unknown] Allergy/AdvReac Type Severity Reaction Status Date / Time Penicillins Allergy Unknown Verified 12/17/21 06:09 Sulfa (Sulfonamide Allergy Unknown Verified 12/17/21 06:09 Antibiotics) Family History Mother Heart disease Father Heart disease Surgical History History of left hip hemiarthroplasty History of total left hip replacement S/P tonsillectomy and adenoidectomy Social History housing: long-term Smoking Status: Never smoker alcohol intake: never substance use type: does not use ROS Review of Systems ROS Unobtainable: due to mental status Physical Exam Const alert General Appearance: cooperative Orientation / Consciousness: confused and disoriented Nutritional Appearance: obese HEENT normocephalic and head/scalp atraumatic Eyes PERRL, EOMs intact bilaterally and conjunctivae normal Neck supple General: trachea midline Chest inspection of chest normal Resp normal respiratory effort Auscultation: diminished lung sounds; Negative for rales, rhonchi or wheezes Cardio regular rate and regular rhythm GI normal to inspection, nondistended, normoactive bowel sounds Extremity General Extremity: edema bilateral lower extremity; Negative for clubbing Skin General Skin Exam: venous stasis and dermatitis Neuro CN's II-XII intact bilaterally and moves all extremities Psych Mood & Affect: anxious Lab / Micro Data Result Diagrams: 12/18/21 04:07 12/18/21 04:07 Labs: Laboratory Results - last 24 hr 12/17/21 04:42: Phosphorus 3.1, Magnesium 2.2 12/17/21 04:42: Procalcitonin 16.30 H 12/17/21 04:42: Hemoglobin A1c Cancelled 12/17/21 05:20: Urine Color Yellow, Urine Clarity Turbid, Urine pH 6.0, Ur Specific [place] 1.015, Urine Protein 100 H, Urine Glucose (UA) NEGATIVE, Urine Ketones 5 H, Urine Occult Blood 150 H, Urine Nitrite Negative, Urine Bilirubin 1 H, Urine Urobilinogen 4 H, Ur Leukocyte Esterase 500 H, Urine RBC 0-5 SEEN, Urine WBC >100 SEEN, Ur Squamous Epith Cells 0 SEEN, Urine Bacteria 4+, Urine Mucus 0 SEEN 12/17/21 08:10: Troponin I High Sens 38 12/18/21 04:07: WBC 23.6 H, RBC 2.99 L, Hgb 9.7 L, Hct 29.9 L, MCV 100.0 H, MCH 32.4 H, MCHC 32.4, RDW Std Deviation 59.0 H, RDW Coeff of Erica 15.9 H, Plt Count 139 L, MPV 9.9, Immature Gran % (Auto) DEPUTY SHERIFF/INVESTIGATOR, Neut % (Auto) DEPUTY SHERIFF/INVESTIGATOR, Lymph % (Auto) DEPUTY SHERIFF/INVESTIGATOR, [place] % (Auto) DEPUTY SHERIFF/INVESTIGATOR, Eos % (Auto) DEPUTY SHERIFF/INVESTIGATOR, Baso % (Auto) DEPUTY SHERIFF/INVESTIGATOR, Absolute Neuts (auto) 20.8 H, Absolute Lymphs (auto) 1.42, Total Counted 100, Neutrophils % (Manual) 69, Band Neutrophils % 13 H, Lymphocytes % (Manual) 6 L, Monocytes % (Manual) 6, Metamyelocytes % 4 H, Myelocytes % 2 H, Nucleated RBC % 0, Diff Path Review May foll, Platelet Estimate ADEQUATE, RBC Morphology NORM C+C 12/18/21 04:07: Sodium 142, Potassium 3.3 L, Chloride 111 H, Carbon Dioxide 24.0, Anion Gap 7, BUN 37 H, Creatinine 0.73, Estim Creat Clear Calc 50.14, Est GFR (MDRD) Af Amer 100, Est GFR (MDRD) Non-Af 82, BUN/Creatinine Ratio 51.0 H, Glucose 133 H, Calcium 7.8 L, Total Bilirubin 0.50, AST 23, ALT 18, Alkaline Phosphatase 63, Total Protein 5.2 L, Albumin 1.6 L, Globulin 3.6, Albumin/Globulin Ratio 0.4 L Micro: Microbiology 12/17/21 04:42 Blood Culture (Wb) - Anticubital Right Blood Culture - Preliminary 12/17/21 05:30 Blood Culture (Wb) - Left Wrist Blood Culture - Preliminary 12/17/21 05:20 Stool Enteric Bacteriology - Final 12/17/21 05:20 Stool C. difficile GDH Antigen & Toxins - Final 12/17/21 05:20 Stool C. difficile DNA Amplification - Final 12/17/21 05:26 Nasal Secretion SARS-CoV-2 Antigen (Rapid) - Final Radiology Impression Chest X-Ray 12/17/21 14:28 IMPRESSION: Interval placement of left-sided PICC with tip in the low SVC. Electronically Signed: Garrison Kay MD at 17:24 EDT , Charges/Coding Procedures Hospitalists Procedures: [id number] Critial Care 1st Hr
--- NOTE | 2021-12-18 08:34 | PCM.PN.HOSP ---
Subjective Subjective Patient was seen and examined today, her blood cultures grew out gram-negative rods, I do not believe the patient has C. difficile at this time, her stools are not liquid. I have elected to stop her IV Flagyl at this time. Patient is very confused this morning, she asked me repeated questions which I answered and she states that she does not understand the answers yet she repeats the answers to me when I ask her the question. Patient's white blood cell count today was 23.6. Patient remains on pressor agents at this time. Objective Data Objective Data Vital Signs: Vital Signs Temp Pulse Resp BP Pulse Ox O2 Del Method O2 Flow Rate 98.4 F 86 18 125/65 H 99 Nasal Cannula 3 12/18/21 08:00 12/18/21 08:00 12/18/21 08:00 12/18/21 08:00 12/18/21 08:00 12/18/21 08:00 12/18/21 08:00 Oxygen Flow Rate (L/min) 3 Oxygen Delivery Method Nasal Cannula Weight: 108.9 kg Body Mass Index (BMI) 34.2 Intake & Output: Intake and Output for Last 24 Hours 12/16/21 12/17/21 12/18/21 23:59 23:59 23:59 Intake Total 3270.88 / 3308.38 907.22 / 907.22 Output Total 350 / 600 500 / 500 Balance 2920.88 / 2708.38 407.22 / 407.22 Lab / Micro Data Result Diagrams: 12/18/21 04:07 12/18/21 04:07 Labs: Laboratory Results - last 24 hr 12/17/21 04:42: Hemoglobin A1c Cancelled 12/18/21 04:07: WBC 23.6 H, RBC 2.99 L, Hgb 9.7 L, Hct 29.9 L, MCV 100.0 H, MCH 32.4 H, MCHC 32.4, RDW Std Deviation 59.0 H, RDW Coeff of Erica 15.9 H, Plt Count 139 L, MPV 9.9, Immature Gran % (Auto) SPORTING GOODS SALESPERSON, Neut % (Auto) SPORTING GOODS SALESPERSON, Lymph % (Auto) SPORTING GOODS SALESPERSON, [place] % (Auto) SPORTING GOODS SALESPERSON, Eos % (Auto) SPORTING GOODS SALESPERSON, Baso % (Auto) SPORTING GOODS SALESPERSON, Absolute Neuts (auto) 20.8 H, Absolute Lymphs (auto) 1.42, Total Counted 100, Neutrophils % (Manual) 69, Band Neutrophils % 13 H, Lymphocytes % (Manual) 6 L, Monocytes % (Manual) 6, Metamyelocytes % 4 H, Myelocytes % 2 H, Nucleated RBC % 0, Diff Path Review May foll, Platelet Estimate ADEQUATE, RBC Morphology NORM C+C 12/18/21 04:07: Sodium 142, Potassium 3.3 L, Chloride 111 H, Carbon Dioxide 24.0, Anion Gap 7, BUN 37 H, Creatinine 0.73, Estim Creat Clear Calc 50.14, Est GFR (MDRD) Af Amer 100, Est GFR (MDRD) Non-Af 82, BUN/Creatinine Ratio 51.0 H, Glucose 133 H, Calcium 7.8 L, Total Bilirubin 0.50, AST 23, ALT 18, Alkaline Phosphatase 63, Total Protein 5.2 L, Albumin 1.6 L, Globulin 3.6, Albumin/Globulin Ratio 0.4 L Micro: Microbiology 12/17/21 05:30 Blood Culture (Wb) - Left Wrist Blood Culture - Preliminary 12/17/21 04:42 Blood Culture (Wb) - Anticubital Right Blood Culture - Preliminary GNR lactose babysitter 12/17/21 05:20 Stool Enteric Bacteriology - Final 12/17/21 05:20 Stool C. difficile GDH Antigen & Toxins - Final 12/17/21 05:20 Stool C. difficile DNA Amplification - Final 12/17/21 05:26 Nasal Secretion SARS-CoV-2 Antigen (Rapid) - Final Radiography Diagnostic Testing: Radiology Impression Chest X-Ray 12/17/21 14:28 IMPRESSION: Interval placement of left-sided PICC with tip in the low SVC. Electronically Signed: Garrison Kay MD at 17:24 EDT , Physical Exam Const alert Constitutional Narrative: Patient is alert but confused, she appears anxious General Appearance: well kempt and well developed Orientation / Consciousness: awake HEENT normocephalic, head/scalp atraumatic and moist oral mucous membranes Head and Scalp: normocephalic Eyes PERRL, EOMs intact bilaterally and conjunctivae normal Neck supple, no JVD and thyroid normal General: trachea midline Resp normal respiratory effort, no retractions, no use of accessory muscles and clear to auscultation bilaterally Auscultation: Negative for rales, rhonchi or wheezes Cardio S1 normal heart sound, S2 normal heart sound, no murmurs, no rub and no gallops Cardio Narrative: Heart rate and rhythm is irregular GI normal to inspection, nondistended, normoactive bowel sounds, soft to palpation, non-tender and non-distended Extremity no clubbing, cyanosis or edema Skin no rashes or lesions noted General Skin Exam: no breakdown Neuro CN's II-XII intact bilaterally and no focal motor deficits Sensorium / Orientation: awake and alert Psych Psych Narrative: Patient is confused and appears anxious morning. Assessment & Plan Assessment/Plan (1) Septic shock: PLAN: Plan 1. Septic shock-secondary to gram-negative infection, probably urinary tract in origin-continue meropenem, repeat labs #2 dehydration-patient is currently receiving IV fluids #3 history of diarrhea-we have not seen actual diarrhea stools since the patient has been admitted, again I have decided to stop her Flagyl, patient is negative for C. difficile toxin and positive for C. difficile organism. #4 hypokalemia-potassium supplementation was given #5 atrial fibrillation-patient is on Xarelto currently #6 dementia with behavioral disturbances-patient is currently on Xanax, I will refrain from administering any antipsychotic medications at this time Charges/Coding Visit Charges Inpatient E&M: 87601 Subs Hosp L2
[2021-12-18] MEDS: Potassium Chloride 20mEq/100mL 20 MEQ/100 ML IV.SOLN. 100 MEQ IV BOLUS (09:40)
[2021-12-18] MEDS: LORazepam 2 MG/ML Syringe 0.5 MG IV (21:57)
[2021-12-19] VITALS (37 sets, daily range): BP systolic 86–156; BP diastolic 39–108; PULSE 70–84; RESP 14–26; TEMP 36.3–37.4; O2SAT 82–100
[2021-12-19 04:52] LABS: Absolute Lymphocyte Count 0.82 X10^3/uL (0.83-4.51); Absolute Neutrophil Count 10.6 X10^3/uL (2.0-7.7); Basophil# 0.07 X10^3/uL; Basophil% 0.5 % (0-1); Eosinophil# 0.04 X10^3/uL; Eosinophils% 0.3 % (0-5); Hematocrit 28.5 % (37-47); Hemoglobin 9.3 g/dL (12.0-15.0); Lymphocyte # 0.82 X10^3/ul (0.83-4.51); Lymphocyte % 5.9 % (19-41); Mean Corp Hgb Conc 32.6 g/dL (32-36); Mean Corpuscular Hgb 32.4 pg (27.0-32.0); Mean Corpuscular Volume 99.3 fL (81-99); Mean Platelet Vol. 9.6 fl (6.2-12.0); Monocyte# 1.74 X10^3/uL; Monocyte% 12.6 % (0-10); NRBC Flagged by Analyzer 0 % (0-5); Neutrophil # 10.55 X10^3/uL (2.7-7.7); Neutrophil % 76.2 % (47-70); POSITIVE DIFFERENTIAL YES; Platelet Count 113 K/mm3 (150-450); RBC Distribution Width CV 15.9 % (11.6-14.6); RBC Distribution Width SD 58.4 fl (35.1-43.9); Red Blood Count 2.87 M/mm3 (4.2-5.4); White Blood Count 13.8 K/mm3 (4.4-11.0)
[2021-12-19 04:54] LABS: Differential Indicated SCAN CRITERIA MET
[2021-12-19] MEDS: 0.9% Saline Lock 10 ML Syringe IV ×3 (05:09→20:37)
[2021-12-19 05:19] LABS: Anion Gap 5 (5-15); BUN 38 mg/dL (7-18); BUN/Creat Ratio 67.9 RATIO (10-20); Calcium,Total 8.5 mg/dL (8.5-10.1); Chloride 114 mmol/L (98-107); Creatinine, Serum 0.56 mg/dL (0.55-1.02); EST Glomerular Filtration Rate 111 mL/min (>60); Est Glom Filt Rate - Afr Amer 135 mL/min (>60); Estimated Creatinine Clearance 50.14 ml/min; Glucose 103 mg/dL (74-106); Potassium 3.2 mmol/L (3.5-5.1); Sodium Level 147 mmol/L (136-145)
[2021-12-19] MEDS: Potassium Chloride 20mEq/100mL 20 MEQ/100 ML IV.SOLN. 100 MEQ IV BOLUS ×2 (06:21→08:19)
[2021-12-19 06:41] LABS: Anisocytosis 1+; Macrocytosis 1+
--- NOTE | 2021-12-19 07:14 | PCM.PN.INT ---
Assessment & Plan Assessment/Plan (1) Septic shock: PLAN: Plan RECOMMENDATIONS: 1. Continue empiric antimicrobials, pending finalized culture results. 2. Continue Levophed to maintain a mean arterial pressure at or above 65 mmHg. 3. Continue Xarelto per home regimen. 4. Continue appropriate GI prophylaxis. 5. Encourage incentive spirometer use and mobilize patient as tolerated. 6. Delirium protocol 7. Aggressive repletion of electrolytes IMPRESSIONS: 1. Septic shock Likely secondary to gram-negative urinary tract source of infection with secondary hematogenous spread. The patient has been volume resuscitated and will be continued on Levophed to maintain a mean arterial pressure at or above 65 mmHg. Continue antimicrobials as ordered, pending finalized culture results. Hold on additional fluid boluses 2. Anemia/thrombocytopenia The patient has chronic anemia with thrombocytopenia that is likely consumptive in nature and related to septic shock. Plan to continue to monitor blood counts. There is no indication for transfusion of blood products at this time. 3. Hypokalemia Potassium repletion as ordered. Recheck levels in the morning. 4. History of VTE on Xarelto/unspecified seizure disorder/anxiety/depression/metabolic encephalopathy Complicates care, management, recovery and prognosis. Continue systemic anticoagulation as ordered. Delirium protocol with aggressive fluid resuscitation and use of assistive devices such as hearing aids. Patient is at increased risk for delirium given baseline dementia reported in history. TIME: 32 minutes of critical care time, independent of procedures, was spent addressing the patient's septic shock, anemia, thrombocytopenia, hypokalemia, review of all data and collaboration with the care team. Subjective Subjective Patient did okay overnight. Patient remains confused, but directable. Patient has been on Levophed, but some weaning is taken place overnight. Patient with no new complaints this morning. Patient appears to be confused, but was able to tell that I had not seen her previously. Patient was not reporting any dysuria. Objective Data Objective Data Vital Signs: Vital Signs Temp Pulse Resp BP Pulse Ox O2 Del Method O2 Flow Rate 36.5 C L 80 15 130/81 H 98 Nasal Cannula 2 12/19/21 05:00 12/19/21 07:00 12/19/21 07:00 12/19/21 07:00 12/19/21 07:00 12/19/21 07:00 12/19/21 07:00 Oxygen Flow Rate (L/min) 2 Oxygen Delivery Method Nasal Cannula Weight: 108.7 kg Body Mass Index (BMI) 34.2 Intake & Output: Intake and Output for Last 24 Hours 12/17/21 12/18/21 12/19/21 23:59 23:59 23:59 Intake Total 3270.88 / 3308.38 1857.68 / 1858.63 186.13 / 186.13 Output Total 350 / 600 1400 / 1400 300 / 300 Balance 2920.88 / 2708.38 457.68 / 458.63 -113.87 / -113.87 Lab / Micro Data Attestation: I reviewed the patient's lab results. Result Diagrams: 12/19/21 04:26 12/19/21 04:26 Labs: Laboratory Results - last 24 hr 12/19/21 04:26: WBC 13.8 H, RBC 2.87 L, Hgb 9.3 L, Hct 28.5 L, MCV 99.3 H, MCH 32.4 H, MCHC 32.6, RDW Std Deviation 58.4 H, RDW Coeff of Erica 15.9 H, Plt Count 113 L, MPV 9.6, Immature Gran % (Auto) 4.500 H, Neut % (Auto) 76.2 H, Lymph % (Auto) 5.9 L, [place] % (Auto) 12.6 H, Eos % (Auto) 0.3, Baso % (Auto) 0.5, Absolute Neuts (auto) 10.6 H, Absolute Lymphs (auto) 0.82 L, Nucleated RBC % 0, Diff Path Review October, Anisocytosis 1+, Macrocytosis 1+ 12/19/21 04:26: Sodium 147 H, Potassium 3.2 L, Chloride 114 H, Carbon Dioxide 28.0, Anion Gap 5, BUN 38 H, Creatinine 0.56, Estim Creat Clear Calc 50.14, Est GFR (MDRD) Af Amer 135, Est GFR (MDRD) Non-Af 111, BUN/Creatinine Ratio 67.9 H, Glucose 103, Calcium 8.5 Micro: Microbiology 12/17/21 04:42 Blood Culture (Wb) - Anticubital Right Blood Culture - Preliminary Escherichia coli 12/17/21 05:20 Urine Catheter - Catheter Urine Culture - Preliminary GNR lactose agriculture engineer 12/17/21 05:30 Blood Culture (Wb) - Left Wrist Blood Culture - Preliminary 12/17/21 05:20 Stool Enteric Bacteriology - Final 12/17/21 05:20 Stool C. difficile GDH Antigen & Toxins - Final 12/17/21 05:20 Stool C. difficile DNA Amplification - Final 12/17/21 05:26 Nasal Secretion SARS-CoV-2 Antigen (Rapid) - Final Physical Exam Const alert General Appearance: cooperative Orientation / Consciousness: confused and disoriented Nutritional Appearance: obese HEENT normocephalic and head/scalp atraumatic General Ear: hearing grossly impaired diffuse (No hearing aids in place) Eyes PERRL, EOMs intact bilaterally and conjunctivae normal Neck supple General: trachea midline Chest inspection of chest normal Resp normal respiratory effort Auscultation: diminished lung sounds; Negative for rales, rhonchi or wheezes Cardio regular rate, regular rhythm, S1 normal heart sound and S2 normal heart sound Heart Sounds: murmur systolic III/ harsh mid left sternal border GI normal to inspection, nondistended, normoactive bowel sounds no CVA tenderness Extremity General Extremity: edema bilateral (2+) lower extremity; Negative for clubbing Skin Skin Narrative: Dermal atrophy noted General Skin Exam: venous stasis and dermatitis Neuro CN's II-XII intact bilaterally and moves all extremities Psych Psych Narrative: Slightly pressured speech Activity / Motor Behavior: restless Mood & Affect: anxious Charges/Coding Procedures Hospitalists Procedures: 39340 Critial Care 1st Hr
--- NOTE | 2021-12-19 10:44 | PN.HOSP_ITS ---
Subjective Subjective Patient seen and examined. She is alert and communicative but is confused. She is able to answer basic questions but does not appear to be oriented to place or time. She denies any fever, chills, nausea, vomiting or diarrhea. Review of systems otherwise negative. She was weaned off of her Levophed this morning. URine and blood cultures are growing ESBL E. coli. Objective Data Objective Data Vital Signs: Vital Signs Temp Pulse Resp BP Pulse Ox O2 Del Method O2 Flow Rate 98.3 F 84 20 H 142/87 H 98 Nasal Cannula 1 12/19/21 08:00 12/19/21 09:00 12/19/21 09:00 12/19/21 09:00 12/19/21 09:00 12/19/21 09:00 12/19/21 09:00 Oxygen Flow Rate (L/min) 1 Oxygen Delivery Method Nasal Cannula Weight: 239 lb 10.279 oz Body Mass Index (BMI) 34.2 Intake & Output: Intake and Output for Last 24 Hours 12/17/21 12/18/21 12/19/21 23:59 23:59 23:59 Intake Total 3270.88 / 3308.38 1857.68 / 1858.63 386.13 / 386.13 Output Total 350 / 600 1400 / 1400 400 / 400 Balance 2920.88 / 2708.38 457.68 / 458.63 -13.87 / -13.87 Lab / Micro Data Result Diagrams: 12/19/21 04:26 12/19/21 04:26 Labs: Laboratory Results - last 24 hr 12/19/21 04:26: WBC 13.8 H, RBC 2.87 L, Hgb 9.3 L, Hct 28.5 L, MCV 99.3 H, MCH 32.4 H, MCHC 32.6, RDW Std Deviation 58.4 H, RDW Coeff of Erica 15.9 H, Plt Count 113 L, MPV 9.6, Immature Gran % (Auto) 4.500 H, Neut % (Auto) 76.2 H, Lymph % (Auto) 5.9 L, [place] % (Auto) 12.6 H, Eos % (Auto) 0.3, Baso % (Auto) 0.5, Absolute Neuts (auto) 10.6 H, Absolute Lymphs (auto) 0.82 L, Nucleated RBC % 0, Diff Path Review May foll, Anisocytosis 1+, Macrocytosis 1+ 12/19/21 04:26: Sodium 147 H, Potassium 3.2 L, Chloride 114 H, Carbon Dioxide 28.0, Anion Gap 5, BUN 38 H, Creatinine 0.56, Estim Creat Clear Calc 50.14, Est GFR (MDRD) Af Amer 135, Est GFR (MDRD) Non-Af 111, BUN/Creatinine Ratio 67.9 H, Glucose 103, Calcium 8.5 Micro: Microbiology 12/17/21 04:42 Blood Culture (Wb) - Anticubital Right Blood Culture - Preliminary Escherichia coli 12/17/21 05:20 Urine Catheter - Catheter Urine Culture - Preliminary Escherichia coli 12/17/21 05:30 Blood Culture (Wb) - Left Wrist Blood Culture - Preliminary 12/17/21 05:20 Stool Enteric Bacteriology - Final 12/17/21 05:20 Stool C. difficile GDH Antigen & Toxins - Final 12/17/21 05:20 Stool C. difficile DNA Amplification - Final 12/17/21 05:26 Nasal Secretion SARS-CoV-2 Antigen (Rapid) - Final Physical Exam Const alert and no apparent distress Constitutional Narrative: confused, disoriented Orientation / Consciousness: confused HEENT head/scalp atraumatic, moist oral mucous membranes and oropharynx normal Head and Scalp: normocephalic Eyes PERRL, EOMs intact bilaterally and conjunctivae normal Neck no lymphadenopathy and supple Resp normal respiratory effort, no retractions, no use of accessory muscles and clear to auscultation bilaterally Cardio regular rate, regular rhythm, S1 normal heart sound, S2 normal heart sound and no murmurs Extremity normal to inspection, full ROM and no clubbing, cyanosis or edema Neuro CN's II-XII intact bilaterally, moves all extremities and no focal motor deficits Neuro Narrative: confused Sensorium / Orientation: awake and alert Assessment & Plan Assessment/Plan (1) Septic shock: (2) Altered mental status: (3) Bacteremia: PLAN: Plan #Septic shock due to ESBL E coli bacteremia * weaned off of levophed this morning. * blood cultures and urine culture growing ESBL E coli. She is on meropenem * wbc down to 13 today. * critical care on board. 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 * will mointor * on xanax prn * #Diarrhea: was reported to be having diarrhea, but hasnt had any diarrhea during this admission. Will monitor #Anxiety and depression: Xanax History of seizure disorder: On lacosamide and valproic acid DVT prophylaxis: not indicated as she is on xarelto. GI prophylaxis: PPI Charges/Coding Visit Charges Inpatient E&M: 77521 [facility] Hosp L3
--- NOTE | 2021-12-19 10:52 | CASEMGMT ---
Discharge Shift Nurse Manager Jeannie Velazquez Store Protection Specialist emailed patient updates over to Kendal at [facility]. Jeannie Dixon Discharge Shift Nurse Manager
[2021-12-19] MEDS: Pantoprazole Sodium 40 MG Tablet PO ×2 (11:11→20:38)
[2021-12-19] MEDS: Rivaroxaban 15 MG Tablet PO (12:07)
[2021-12-19 12:08] LABS: Pathologist Review Reviewed
[2021-12-19] MEDS: CHLORHEXIDINE GLUC 2% CLOTH 1 EACH TOWELETTE TOPICAL (12:08)
[2021-12-19 12:11] LABS: Pathologist Review Reviewed
[2021-12-19] MEDS: Mirtazapine 15 MG Tablet PO (20:37)
[2021-12-19] MEDS: Acetaminophen 325 MG Tablet 650 MG PO (20:38)
[2021-12-19] MEDS: ALPRAZolam 0.25 MG Tablet PO (20:38)
[2021-12-20] VITALS (47 sets, daily range): BP systolic 74–166; BP diastolic 37–84; PULSE 62–96; RESP 14–23; TEMP 36.3–37.2; O2SAT 91–100
[2021-12-20 03:20] LABS: Hematocrit 27.8 % (37-47); Hemoglobin 8.8 g/dL (12.0-15.0); Mean Corp Hgb Conc 31.7 g/dL (32-36); Mean Corpuscular Volume 101.1 fL (81-99); Mean Platelet Vol. 10.3 fl (6.2-12.0); POSITIVE COUNT YES; POSITIVE MORPHOLOGY YES; Platelet Count 106 K/mm3 (150-450); RBC Distribution Width CV 16.2 % (11.6-14.6); RBC Distribution Width SD 60.2 fl (35.1-43.9); Red Blood Count 2.75 M/mm3 (4.2-5.4); White Blood Count 9.3 K/mm3 (4.4-11.0)
[2021-12-20 03:34] LABS: Anion Gap 3 (5-15); BUN 33 mg/dL (7-18); BUN/Creat Ratio 74.3 RATIO (10-20); Calcium,Total 8.2 mg/dL (8.5-10.1); Chloride 115 mmol/L (98-107); Creatinine, Serum 0.44 mg/dL (0.55-1.02); EST Glomerular Filtration Rate 145 mL/min (>60); Est Glom Filt Rate - Afr Amer 176 mL/min (>60); Estimated Creatinine Clearance 50.14 ml/min; Glucose 112 mg/dL (74-106); Potassium 3.8 mmol/L (3.5-5.1); Sodium Level 148 mmol/L (136-145)
[2021-12-20 04:05] LABS: Differential Indicated MANUAL DIFF
[2021-12-20 04:25] LABS: Eosinophil 2 % (0-5); Lymphocyte 17 % (19-41); Metamyelocyte 2 % (0-1); Monocyte 11 % (0-10); Myelocyte 2 % (0-0); Neutrophil-Band 5 % (0-5); Neutrophil-Segmented 61 % (47-70); Platelet Estimate SLT DEC (ADEQ); Total Cells Counted 100 (MANUAL DIFF)
[2021-12-20 04:26] LABS: Absolute Lymphocyte Count 1.58 X10^3/uL (0.83-4.51); Absolute Neutrophil Count 6.1 X10^3/uL (2.0-7.7); Lymphocyte # 1.58 X10^3/ul (0.83-4.51); Neutrophil # 6.14 X10^3/uL (2.7-7.7); Ovalocyte RARE; Red Cell Morphology N CHROM NORMAL (NORM C&C)
[2021-12-20] MEDS: CHLORHEXIDINE GLUC 2% CLOTH 1 EACH TOWELETTE TOPICAL (05:32)
[2021-12-20] MEDS: Midodrine HCl 5 MG Tablet PO ×2 (06:53→08:13)
--- NOTE | 2021-12-20 07:09 | PCM.PN.INT ---
Assessment & Plan Assessment/Plan (1) Septic shock: PLAN: Plan RECOMMENDATIONS: 1. Continue meropenem given ESBL. 2. Add midodrine. Continue Levophed to maintain a mean arterial pressure at or above 65 mmHg. 3. Continue Xarelto per home regimen. 4. Continue appropriate GI prophylaxis. 5. Encourage incentive spirometer use and mobilize patient as tolerated. 6. Delirium protocol 7. Possible transfer from the intensive care unit later today IMPRESSIONS: 1. Septic shock Secondary to ESBL E. coli with urinary tract source of infection and secondary hematogenous spread. The patient has been volume resuscitated and will be continued on Levophed to maintain a mean arterial pressure at or above 65 mmHg. Will add midodrine. Continue antimicrobials as ordered, pending finalized culture results. Hold on additional fluid boluses. Possible transfer later today. Low clinical suspicion for adrenal insufficiency given patient does not take steroids routinely. 2. Anemia/thrombocytopenia The patient has chronic anemia with thrombocytopenia that is likely consumptive in nature and related to septic shock. Plan to continue to monitor blood counts. There is no indication for transfusion of blood products at this time. 3. Hypokalemia Potassium repletion as ordered. Recheck levels in the morning. 4. History of VTE on Xarelto/unspecified seizure disorder/anxiety/depression/metabolic encephalopathy Complicates care, management, recovery and prognosis. Continue systemic anticoagulation as ordered. Delirium protocol with aggressive use of assistive devices such as hearing aids. Patient is at increased risk for delirium given baseline dementia reported in history. Avoid benzodiazepines TIME: 31 minutes of critical care time, independent of procedures, was spent addressing the patient's septic shock, anemia, thrombocytopenia, hypokalemia, review of all data and collaboration with the care team. Subjective Subjective Patient did well overnight. No acute issues were reported. Patient has been intermittently on minimal doses of Levophed to maintain appropriate pressures. Patient with no new complaints today, but did recognize me from yesterday. Patient denies any dysuria. He is Objective Data Objective Data Vital Signs: Vital Signs Temp Pulse Resp BP Pulse Ox O2 Del Method O2 Flow Rate 37.2 C 75 17 128/56 H 96 Room Air 1 12/20/21 04:00 12/20/21 06:30 12/20/21 06:00 12/20/21 06:30 12/20/21 06:00 12/20/21 06:00 12/19/21 14:00 Oxygen Flow Rate (L/min) 1 Oxygen Delivery Method Room Air Weight: 109.6 kg Body Mass Index (BMI) 34.2 Intake & Output: Intake and Output for Last 24 Hours 12/18/21 12/19/21 12/20/21 23:59 23:59 23:59 Intake Total 1857.68 / 1858.63 1093.63 / 1093.63 70.12 / 70.12 Output Total 1400 / 1400 825 / 925 200 / 200 Balance 457.68 / 458.63 268.63 / 168.63 -129.88 / -129.88 Lab / Micro Data Result Diagrams: 12/20/21 03:15 12/20/21 03:15 Labs: Laboratory Results - last 24 hr 12/18/21 04:07: Diff Path Review Reviewed 12/19/21 04:26: Diff Path Review Reviewed 12/20/21 03:15: WBC 9.3, RBC 2.75 L, Hgb 8.8 L, Hct 27.8 L, MCV 101.1 H, MCH 32.0, MCHC 31.7 L, RDW Std Deviation 60.2 H, RDW Coeff of Erica 16.2 H, Plt Count 106 L, MPV 10.3, Neut % (Auto) Not Reportable, Absolute Neuts (auto) 6.1, Absolute Lymphs (auto) 1.58, Total Counted 100, Neutrophils % (Manual) 61, Band Neutrophils % 5, Lymphocytes % (Manual) 17 L, Monocytes % (Manual) 11 H, Eosinophils % (Manual) 2, Metamyelocytes % 2 H, Myelocytes % 2 H, Diff Path Review May foll, Platelet Estimate SLT DEC, RBC Morphology N CHROM, Ovalocytes RARE 12/20/21 03:15: Sodium 148 H, Potassium 3.8, Chloride 115 H, Carbon Dioxide 30.0, Anion Gap 3 L, BUN 33 H, Creatinine 0.44 L, Estim Creat Clear Calc 50.14, Est GFR (MDRD) Af Amer 176, Est GFR (MDRD) Non-Af 145, BUN/Creatinine Ratio 74.3 H, Glucose 112 H, Calcium 8.2 L Micro: Microbiology 12/17/21 04:42 Blood Culture (Wb) - Anticubital Right Blood Culture - Preliminary Escherichia coli 12/17/21 05:20 Urine Catheter - Catheter Urine Culture - Preliminary Escherichia coli 12/17/21 05:30 Blood Culture (Wb) - Left Wrist Blood Culture - Preliminary 12/17/21 05:20 Stool Enteric Bacteriology - Final 12/17/21 05:20 Stool C. difficile GDH Antigen & Toxins - Final 12/17/21 05:20 Stool C. difficile DNA Amplification - Final 12/17/21 05:26 Nasal Secretion SARS-CoV-2 Antigen (Rapid) - Final Physical Exam Const alert General Appearance: cooperative Orientation / Consciousness: confused and disoriented Nutritional Appearance: obese HEENT normocephalic and head/scalp atraumatic Eyes PERRL, EOMs intact bilaterally and conjunctivae normal Neck supple General: trachea midline Chest inspection of chest normal Resp normal respiratory effort Auscultation: diminished lung sounds; Negative for rales, rhonchi or wheezes Cardio regular rate, regular rhythm, S1 normal heart sound and S2 normal heart sound Heart Sounds: murmur systolic III/ harsh mid left sternal border GI normal to inspection, nondistended, normoactive bowel sounds no CVA tenderness Extremity General Extremity: edema bilateral (2+) lower extremity; Negative for clubbing Skin Skin Narrative: Dermal atrophy noted General Skin Exam: venous stasis and dermatitis Neuro CN's II-XII intact bilaterally and moves all extremities Psych Psych Narrative: Slightly pressured speech Activity / Motor Behavior: restless Mood & Affect: anxious Charges/Coding Procedures Hospitalists Procedures: [id number] Critial Care 1st Hr
[2021-12-20] MEDS: Rivaroxaban 15 MG Tablet PO (08:16)
[2021-12-20] MEDS: Pantoprazole Sodium 40 MG Tablet PO ×2 (08:16→20:10)
--- NOTE | 2021-12-20 10:04 | PCM.PN.HOSP ---
Subjective Subjective Patient seen and examined. She still remains confused. She was working with speech therapy at time of review. Unable to do comprehensive review of status on account of her confusion. She remained intermittently hypotensive overnight and had to be on Levophed. She has been weaned off of Levophed this morning and was now on midodrine. Objective Data Objective Data Vital Signs: Vital Signs Temp Pulse Resp BP Pulse Ox O2 Del Method O2 Flow Rate 97.8 F 62 17 144/68 H 95 Room Air 1 12/20/21 08:00 12/20/21 08:00 12/20/21 08:00 12/20/21 08:15 12/20/21 08:00 12/20/21 08:00 12/19/21 14:00 Oxygen Flow Rate (L/min) 1 Oxygen Delivery Method Room Air Weight: 241 lb 10.026 oz Body Mass Index (BMI) 34.2 Intake & Output: Intake and Output for Last 24 Hours 12/18/21 12/19/21 12/20/21 23:59 23:59 23:59 Intake Total 1857.68 / 1858.63 1093.63 / 1093.63 70.12 / 70.12 Output Total 1400 / 1400 825 / 925 200 / 200 Balance 457.68 / 458.63 268.63 / 168.63 -129.88 / -129.88 Lab / Micro Data Result Diagrams: 12/20/21 03:15 12/20/21 03:15 Labs: Laboratory Results - last 24 hr 12/18/21 04:07: Diff Path Review Reviewed 12/19/21 04:26: Diff Path Review Reviewed 12/20/21 03:15: WBC 9.3, RBC 2.75 L, Hgb 8.8 L, Hct 27.8 L, MCV 101.1 H, MCH 32.0, MCHC 31.7 L, RDW Std Deviation 60.2 H, RDW Coeff of Erica 16.2 H, Plt Count 106 L, MPV 10.3, Neut % (Auto) Not Reportable, Absolute Neuts (auto) 6.1, Absolute Lymphs (auto) 1.58, Total Counted 100, Neutrophils % (Manual) 61, Band Neutrophils % 5, Lymphocytes % (Manual) 17 L, Monocytes % (Manual) 11 H, Eosinophils % (Manual) 2, Metamyelocytes % 2 H, Myelocytes % 2 H, Diff Path Review May foll, Platelet Estimate SLT DEC, RBC Morphology N CHROM, Ovalocytes RARE 12/20/21 03:15: Sodium 148 H, Potassium 3.8, Chloride 115 H, Carbon Dioxide 30.0, Anion Gap 3 L, BUN 33 H, Creatinine 0.44 L, Estim Creat Clear Calc 50.14, Est GFR (MDRD) Af Amer 176, Est GFR (MDRD) Non-Af 145, BUN/Creatinine Ratio 74.3 H, Glucose 112 H, Calcium 8.2 L Micro: Microbiology 12/17/21 05:20 Urine Catheter - Catheter Urine Culture - Final Escherichia coli 12/17/21 05:30 Blood Culture (Wb) - Left Wrist Blood Culture - Preliminary GNR lactose transportation refrigeration technician 12/17/21 04:42 Blood Culture (Wb) - Anticubital Right Blood Culture - Final Escherichia coli 12/17/21 05:20 Stool Enteric Bacteriology - Final 12/17/21 05:20 Stool C. difficile GDH Antigen & Toxins - Final 12/17/21 05:20 Stool C. difficile DNA Amplification - Final 12/17/21 05:26 Nasal Secretion SARS-CoV-2 Antigen (Rapid) - Final Physical Exam Const alert Constitutional Narrative: confused, disoriented General Appearance: cooperative Orientation / Consciousness: confused and disoriented Nutritional Appearance: obese HEENT normocephalic, head/scalp atraumatic and moist oral mucous membranes Eyes PERRL, EOMs intact bilaterally and conjunctivae normal Neck supple General: trachea midline Chest inspection of chest normal Resp normal respiratory effort, no retractions and no use of accessory muscles Auscultation: diminished lung sounds; Negative for rales, rhonchi or wheezes Cardio regular rate, regular rhythm, S1 normal heart sound and S2 normal heart sound Heart Sounds: murmur systolic III/ harsh mid left sternal border GI normal to inspection, nondistended, normoactive bowel sounds Extremity normal to inspection, full ROM and no clubbing, cyanosis or edema General Extremity: edema bilateral (2+) lower extremity; Negative for clubbing Skin no rashes or lesions noted Skin Narrative: Dermal atrophy noted General Skin Exam: dermatitis Neuro CN's II-XII intact bilaterally and moves all extremities Neuro Narrative: confused Sensorium / Orientation: awake and alert Psych Psych Narrative: Slightly pressured speech Activity / Motor Behavior: restless Assessment & Plan Assessment/Plan (1) Septic shock: (2) Bacteremia: (3) Altered mental status: PLAN: Plan #Septic shock due to ESBL E coli bacteremia had to be placed back on levophed overnight; now off this morning started on midodrine blood cultures and urine culture growing ESBL E coli. She is on meropenem wbc down to 9.3 today critical care on board. 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 will monitor on xanax prn #Diarrhea: was reported to be having diarrhea, but hasnt had any diarrhea during this admission. Will monitor #Hypernatremia: sodium is 148. Likely due to IVF administration. monitor for now; if it worsens, start D5W. #Anxiety and depression: Xanax #History of seizure disorder: On lacosamide and valproic acid DVT prophylaxis: not indicated as she is on xarelto. GI prophylaxis: PPI Charges/Coding Visit Charges Inpatient E&M: 24040 Subs Hosp L3
[2021-12-20] MEDS: 0.9% Saline Lock 10 ML Syringe IV (10:43)
[2021-12-20] MEDS: Lacosamide 100 MG Tablet 200 MG PO ×2 (10:44→20:11)
[2021-12-20 12:51] LABS: Pathologist Review Reviewed
[2021-12-20 12:53] LABS: Pathologist Review Reviewed
[2021-12-20] MEDS: Midodrine HCl 5 MG Tablet 10 MG PO ×2 (13:54→20:29)
[2021-12-20] MEDS: Divalproex Sodium 250 MG Tablet 500 MG PO ×2 (13:55→20:29)
[2021-12-20] MEDS: Mirtazapine 15 MG Tablet PO (20:10)
[2021-12-21] VITALS (25 sets, daily range): BP systolic 82–162; BP diastolic 47–94; PULSE 60–92; RESP 14–25; TEMP 36.3–37.1; O2SAT 93–100
[2021-12-21] MEDS: Midodrine HCl 5 MG Tablet 10 MG PO ×3 (06:29→21:56)
[2021-12-21] MEDS: Divalproex Sodium 250 MG Tablet 500 MG PO ×3 (06:30→21:56)
--- NOTE | 2021-12-21 07:02 | PCM.PN.INT ---
Assessment & Plan Assessment/Plan (1) Septic shock: PLAN: Plan RECOMMENDATIONS: 1. Continue meropenem given ESBL. Consider ID consult 2. Continue midodrine. 3. Continue Xarelto per home regimen. 4. Continue appropriate GI prophylaxis. 5. Encourage incentive spirometer use and mobilize patient as tolerated. 6. Delirium protocol 7. Okay to leave the intensive care unit 8. Hemodynamically stable on room air. Will sign off from a critical care perspective IMPRESSIONS: 1. Septic shock Secondary to ESBL E. coli with urinary tract source of infection and secondary hematogenous spread. The patient has been volume resuscitated and will be continued on Levophed to maintain a mean arterial pressure at or above 65 mmHg. Will continue midodrine. This can likely be weaned over the next 1 to 2 weeks. Continue antimicrobials as ordered, pending repeat blood cultures. Consider infectious disease consult for long-term plan. Hold on additional fluid boluses. Possible transfer later today. Low clinical suspicion for adrenal insufficiency given patient does not take steroids routinely. 2. Anemia/thrombocytopenia The patient has chronic anemia with thrombocytopenia that is likely consumptive in nature and related to septic shock. Plan to continue to monitor blood counts. There is no indication for transfusion of blood products at this time. Stable throughout hospitalization 3. Hypokalemia Potassium repletion as ordered. Recheck levels in the morning. 4. History of VTE on Xarelto/unspecified seizure disorder/anxiety/depression/metabolic encephalopathy Complicates care, management, recovery and prognosis. Continue systemic anticoagulation as ordered. Delirium protocol with aggressive use of assistive devices such as hearing aids. Patient is at increased risk for delirium given baseline dementia reported in history. Avoid benzodiazepines Subjective Subjective Patient did okay overnight. Patient has not been on pressors since yesterday morning. Patient has responded well to midodrine. Patient resting comfortably on my arrival on room air. Patient with no new complaints today. Patient did have her Landa catheter taken out yesterday and had only 50 cc of urine overnight. Patient was bladder scanned for 450 cc, but did not report the need to urinate at this time. Objective Data Objective Data Vital Signs: Vital Signs Temp Pulse Resp BP Pulse Ox O2 Del Method O2 Flow Rate 36.3 C L 77 15 115/53 L 99 Room Air 1 12/21/21 04:00 12/21/21 06:00 12/21/21 06:00 12/21/21 06:00 12/21/21 06:00 12/21/21 06:00 12/19/21 14:00 Oxygen Flow Rate (L/min) 1 Oxygen Delivery Method Room Air Weight: 111.5 kg Body Mass Index (BMI) 34.2 Intake & Output: Intake and Output for Last 24 Hours 12/19/21 12/20/21 12/21/21 23:59 23:59 23:59 Intake Total 1093.63 / 1093.63 1550.12 / 1750.12 900 / 900 Output Total 825 / 925 600 / 600 50 / 50 Balance 268.63 / 168.63 950.12 / 1150.12 850 / 850 Lab / Micro Data Attestation: I reviewed the patient's lab results. Lab results narrative: This morning's labs were available. Sodium and chloride are slightly improved compared to yesterday. Renal function is within normal limits and CBC was relatively unremarkable. Result Diagrams: 12/20/21 03:15 12/20/21 03:15 Labs: Laboratory Results - last 24 hr 12/17/21 04:42: Diff Path Review Reviewed 12/20/21 03:15: Diff Path Review Reviewed Micro: Microbiology 12/17/21 05:20 Urine Catheter - Catheter Urine Culture - Final Escherichia coli 12/17/21 05:30 Blood Culture (Wb) - Left Wrist Blood Culture - Preliminary GNR lactose historiography professor 12/17/21 04:42 Blood Culture (Wb) - Anticubital Right Blood Culture - Final Escherichia coli 12/17/21 05:20 Stool Enteric Bacteriology - Final 12/17/21 05:20 Stool C. difficile GDH Antigen & Toxins - Final 12/17/21 05:20 Stool C. difficile DNA Amplification - Final 12/17/21 05:26 Nasal Secretion SARS-CoV-2 Antigen (Rapid) - Final Physical Exam Const alert General Appearance: cooperative Orientation / Consciousness: disoriented Nutritional Appearance: obese HEENT normocephalic and head/scalp atraumatic Eyes PERRL, EOMs intact bilaterally and conjunctivae normal Neck supple General: trachea midline Chest inspection of chest normal Resp normal respiratory effort Auscultation: diminished lung sounds; Negative for rales, rhonchi or wheezes Cardio regular rate, regular rhythm, S1 normal heart sound, S2 normal heart sound, no rub and no gallops Heart Sounds: murmur systolic III/ harsh mid left sternal border GI normal to inspection, nondistended, normoactive bowel sounds no CVA tenderness Extremity General Extremity: edema bilateral (2+) lower extremity; Negative for clubbing Skin Skin Narrative: Dermal atrophy noted General Skin Exam: venous stasis and dermatitis Neuro CN's II-XII intact bilaterally and moves all extremities Psych Psych Narrative: Slightly pressured speech Activity / Motor Behavior: restless Mood & Affect: anxious Charges/Coding Visit Charges Inpatient E&M: 86530 Subs Hosp L3
[2021-12-21 07:19] LABS: Anion Gap 3 (5-15); BUN 25 mg/dL (7-18); BUN/Creat Ratio 65.8 RATIO (10-20); Calcium,Total 8.2 mg/dL (8.5-10.1); Chloride 114 mmol/L (98-107); Creatinine, Serum 0.38 mg/dL (0.55-1.02); EST Glomerular Filtration Rate 174 mL/min (>60); Est Glom Filt Rate - Afr Amer 211 mL/min (>60); Estimated Creatinine Clearance 50.14 ml/min; Glucose 99 mg/dL (74-106); Potassium 3.8 mmol/L (3.5-5.1); Sodium Level 147 mmol/L (136-145)
[2021-12-21] MEDS: CHLORHEXIDINE GLUC 2% CLOTH 1 EACH TOWELETTE TOPICAL (08:38)
[2021-12-21] MEDS: Rivaroxaban 15 MG Tablet PO (08:38)
[2021-12-21] MEDS: Pantoprazole Sodium 40 MG Tablet PO ×2 (08:38→21:56)
[2021-12-21] MEDS: Lacosamide 100 MG Tablet 200 MG PO ×2 (08:47→22:39)
[2021-12-21 11:08] LABS: Hemoglobin 9.2 g/dL (12.0-15.0); Red Blood Count 2.83 M/mm3 (4.2-5.4); White Blood Count 8.5 K/mm3 (4.4-11.0)
[2021-12-21 11:09] LABS: Differential Indicated MANUAL DIFF; Hematocrit 28.4 % (37-47); Mean Corp Hgb Conc 32.4 g/dL (32-36); Mean Corpuscular Hgb 32.5 pg (27.0-32.0); Mean Corpuscular Volume 100.4 fL (81-99); Mean Platelet Vol. 10.3 fl (6.2-12.0); POSITIVE COUNT YES; POSITIVE MORPHOLOGY YES; Platelet Count 106 K/mm3 (150-450); RBC Distribution Width CV 16.1 % (11.6-14.6); RBC Distribution Width SD 59.2 fl (35.1-43.9)
[2021-12-21 11:10] LABS: Absolute Lymphocyte Count 1.53 X10^3/uL (0.83-4.51); Absolute Neutrophil Count 5.1 X10^3/uL (2.0-7.7); Eosinophil 3 % (0-5); Lymphocyte 18 % (19-41); Metamyelocyte 2 % (0-1); Monocyte 13 % (0-10); Myelocyte 4 % (0-0); NRBC Flagged by Analyzer 0 % (0-5); Neutrophil-Band 8 % (0-5); Neutrophil-Segmented 52 % (47-70)
[2021-12-21 11:11] LABS: Anisocytosis 1+; Hypochromasia 1+; Platelet Estimate SLT DEC (ADEQ)
[2021-12-21] MEDS: 0.9% Saline Lock 10 ML Syringe IV (12:32)
--- NOTE | 2021-12-21 14:57 | PN.HOSP_ITS ---
Subjective Subjective Patient seen and examined. She remains confused. She had no active complaints. SHe is off levophed and has remained off of it. Objective Data Objective Data Vital Signs: Vital Signs Temp Pulse Resp BP Pulse Ox O2 Del Method O2 Flow Rate 98.1 F 80 22 H 123/94 H 100 Room Air 1 12/21/21 12:00 12/21/21 14:00 12/21/21 14:00 12/21/21 14:00 12/21/21 14:00 12/21/21 14:00 12/19/21 14:00 Oxygen Flow Rate (L/min) 1 Oxygen Delivery Method Room Air Weight: 245 lb 13.047 oz Body Mass Index (BMI) 34.2 Intake & Output: Intake and Output for Last 24 Hours 12/19/21 12/20/21 12/21/21 23:59 23:59 23:59 Intake Total 1093.63 / 1093.63 1550.12 / 1750.12 1491.5 / 1491.5 Output Total 825 / 925 600 / 600 150 / 150 Balance 268.63 / 168.63 950.12 / 1150.12 1341.5 / 1341.5 Lab / Micro Data Result Diagrams: 12/21/21 03:55 12/21/21 03:55 Labs: Laboratory Results - last 24 hr 12/21/21 03:35: Sodium Cancelled, Potassium Cancelled, Chloride Cancelled, Carbon Dioxide Cancelled, Anion Gap Cancelled, BUN Cancelled, Creatinine Cancelled, Estim Creat Clear Calc Cancelled, Est GFR (MDRD) Af Amer Cancelled, Est GFR (MDRD) Non-Af Cancelled, BUN/Creatinine Ratio Cancelled, Glucose Cancelled, Calcium Cancelled 12/21/21 03:55: WBC 8.5, RBC 2.83 L, Hgb 9.2 L, Hct 28.4 L, MCV 100.4 H, MCH 32.5 H, MCHC 32.4, RDW Std Deviation 59.2 H, RDW Coeff of Erica 16.1 H, Plt Count 106 L, MPV 10.3, Neut % (Auto) Not Reportable, Absolute Neuts (auto) 5.1, Absolute Lymphs (auto) 1.53, Neutrophils % (Manual) 52, Band Neutrophils % 8 H, Lymphocytes % (Manual) 18 L, Monocytes % (Manual) 13 H, Eosinophils % (Manual) 3, Metamyelocytes % 2 H, Myelocytes % 4 H, Nucleated RBC % 0, Diff Path Review May foll, Platelet Estimate SLT DEC, Hypochromasia 1+, Anisocytosis 1+ 12/21/21 03:55: Sodium 147 H, Potassium 3.8, Chloride 114 H, Carbon Dioxide 30.0, Anion Gap 3 L, BUN 25 H, Creatinine 0.38 L, Estim Creat Clear Calc 50.14, Est GFR (MDRD) Af Amer 211, Est GFR (MDRD) Non-Af 174, BUN/Creatinine Ratio 65.8 H, Glucose 99, Calcium 8.2 L Micro: Microbiology 12/17/21 05:30 Blood Culture (Wb) - Left Wrist Blood Culture - Preliminary GNR lactose truck chauffeur Gram Positive Cocci 12/17/21 05:20 Urine Catheter - Catheter Urine Culture - Final Escherichia coli 12/17/21 04:42 Blood Culture (Wb) - Anticubital Right Blood Culture - Final Escherichia coli 12/17/21 05:20 Stool Enteric Bacteriology - Final 12/17/21 05:20 Stool C. difficile GDH Antigen & Toxins - Final 12/17/21 05:20 Stool C. difficile DNA Amplification - Final 12/17/21 05:26 Nasal Secretion SARS-CoV-2 Antigen (Rapid) - Final Physical Exam Const alert and no apparent distress Constitutional Narrative: confused, disoriented General Appearance: cooperative, well kempt and well developed Orientation / Consciousness: awake, confused and disoriented Nutritional Appearance: obese HEENT normocephalic, head/scalp atraumatic, moist oral mucous membranes and oropharynx normal Eyes PERRL, EOMs intact bilaterally and conjunctivae normal Neck no lymphadenopathy, supple, no JVD and thyroid normal General: trachea midline Chest inspection of chest normal Resp normal respiratory effort, no retractions, no use of accessory muscles and clear to auscultation bilaterally Auscultation: diminished lung sounds; Negative for rales, rhonchi or wheezes Cardio regular rate, regular rhythm, S1 normal heart sound, S2 normal heart sound, no murmurs, no rub and no gallops Cardio Narrative: Heart rate and rhythm is irregular Heart Sounds: murmur systolic III/ harsh mid left sternal border GI normal to inspection, nondistended, normoactive bowel sounds, soft to palpation, non-tender and non-distended Extremity normal to inspection, full ROM and no clubbing, cyanosis or edema General Extremity: edema bilateral (2+) lower extremity; Negative for clubbing Skin no rashes or lesions noted Skin Narrative: Dermal atrophy noted General Skin Exam: no breakdown and dermatitis Neuro CN's II-XII intact bilaterally, moves all extremities and no focal motor deficits Neuro Narrative: confused Sensorium / Orientation: awake and alert Psych Psych Narrative: confused. Assessment & Plan Assessment/Plan (1) Septic shock: (2) Bacteremia: (3) Altered mental status: PLAN: Plan #Septic shock due to ESBL E coli bacteremia * has remained off levophed. * on midodrine * blood cultures and urine culture growing ESBL E coli. She is on meropenem * wbc down to 8.5 today * critical care on board. 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 * will monitor * on xanax prn * #Diarrhea: was reported to be having diarrhea, but hasnt had any diarrhea during this admission. Will monitor #Hypernatremia: sodium is 147. Will monitor. #Anxiety and depression: Xanax #History of seizure disorder: On lacosamide and valproic acid DVT prophylaxis: not indicated as she is on xarelto. GI prophylaxis: PPI Disposition; transfer to PCU Charges/Coding Visit Charges Inpatient E&M: 63938 Subs Hosp L2
--- NOTE | 2021-12-21 16:06 | PCM.CONS.GEN ---
Assessment & Plan Assessment/Plan (1) Septic shock: (2) Bacteremia: PLAN: Overall improved. Off pressors. Wbc normal. Ucx with ESBL ecoli. Bcx x2 with GNR. Single bcx also with GPC, suspect contaminant. Continue meropenem. If she does not continue improve, would check abd/pelvis CT or renal/bladder US. Will follow, thank you (3) Altered mental status: HPI Consult Data Date of Consult: 12/21/21 HPI Narrative Reason for Consultation: bacteremia HPI Narrative: LOBO HINES, is a 76 F who presented 12/17 with altered mental status, hypotension, and hypoxia. Sx with acute onset. Admitted to icu, put on pressors. Lives in ECF. UA with heavy pyuria, ucx and bcx with GNR. Ucx identifed as ESBL ecoli, pt now on meropenem, off pressors, remains in icu. Pt unable to provide history or ROS due to mental status. Denies abd pain. [facility] Medical History Depression with anxiety GERD (gastroesophageal reflux disease) History of venous thromboembolism Hypertension Obesity Seizures Home Medications divalproex 500 mg tablet,delayed release (Depakote) 500 mg PO TID 10/21/18 [History Last Taken Unknown] rivaroxaban 20 mg tablet (Xarelto) 20 mg PO DAILY 10/21/18 [History Last Taken Unknown] zinc gluconate 50 mg tablet 50 mg PO DAILY 10/21/18 [History Last Taken Unknown] alprazolam 0.25 mg tablet 0.25 mg PO BID 12/17/21 [History Last Taken Unknown] buspirone 7.5 mg tablet 7.5 tab TID 12/17/21 [History Last Taken Unknown] carvedilol 3.125 mg tablet 3.125 tab DAILY 12/17/21 [History Last Taken Unknown] lacosamide 200 mg tablet (Vimpat) 200 mg PO BID 12/17/21 [History Last Taken Unknown] mirtazapine 15 mg tablet (Remeron) 15 mg PO QHS 12/17/21 [History Last Taken Unknown] pantoprazole 40 mg tablet,delayed release 40 tab PO BID 12/17/21 [History Last Taken Unknown] Allergy/AdvReac Type Severity Reaction Status Date / Time Penicillins Allergy Unknown Verified 12/17/21 06:09 Sulfa (Sulfonamide Allergy Unknown Verified 12/17/21 06:09 Antibiotics) Family History Mother Heart disease Father Heart disease Surgical History History of left hip hemiarthroplasty History of total left hip replacement S/P tonsillectomy and adenoidectomy Social History housing: [facility] Smoking Status: Never smoker alcohol intake: never substance use type: does not use Physical Exam Const Constitutional Narrative: oriented x1 General Appearance: lethargic HEENT normocephalic and head/scalp atraumatic Eyes PERRL and EOMs intact bilaterally Neck supple and No nodes Resp normal air movement and clear to auscultation bilaterally Cardio regular rate and regular rhythm GI soft to palpation, non-tender and non-distended Extremity no clubbing, cyanosis or edema Skin no rashes or lesions noted Neuro CN's II-XII intact bilaterally Lab / Micro Data Attestation: I reviewed the patient's lab results. Result Diagrams: 12/21/21 03:55 12/21/21 03:55 Labs: Laboratory Results - last 24 hr 12/21/21 03:35: Sodium Cancelled, Potassium Cancelled, Chloride Cancelled, Carbon Dioxide Cancelled, Anion Gap Cancelled, BUN Cancelled, Creatinine Cancelled, Estim Creat Clear Calc Cancelled, Est GFR (MDRD) Af Amer Cancelled, Est GFR (MDRD) Non-Af Cancelled, BUN/Creatinine Ratio Cancelled, Glucose Cancelled, Calcium Cancelled 12/21/21 03:55: WBC 8.5, RBC 2.83 L, Hgb 9.2 L, Hct 28.4 L, MCV 100.4 H, MCH 32.5 H, MCHC 32.4, RDW Std Deviation 59.2 H, RDW Coeff of Erica 16.1 H, Plt Count 106 L, MPV 10.3, Neut % (Auto) Not Reportable, Absolute Neuts (auto) 5.1, Absolute Lymphs (auto) 1.53, Neutrophils % (Manual) 52, Band Neutrophils % 8 H, Lymphocytes % (Manual) 18 L, Monocytes % (Manual) 13 H, Eosinophils % (Manual) 3, Metamyelocytes % 2 H, Myelocytes % 4 H, Nucleated RBC % 0, Diff Path Review May , Platelet Estimate SLT DEC, Hypochromasia 1+, Anisocytosis 1+ 12/21/21 03:55: Sodium 147 H, Potassium 3.8, Chloride 114 H, Carbon Dioxide 30.0, Anion Gap 3 L, BUN 25 H, Creatinine 0.38 L, Estim Creat Clear Calc 50.14, Est GFR (MDRD) Af Amer 211, Est GFR (MDRD) Non-Af 174, BUN/Creatinine Ratio 65.8 H, Glucose 99, Calcium 8.2 L Micro: Microbiology 12/17/21 05:30 Blood Culture (Wb) - Left Wrist Blood Culture - Preliminary GNR lactose sales and marketing director Gram Positive Cocci
[2021-12-21] MEDS: Mirtazapine 15 MG Tablet PO (21:56)
[2021-12-22] VITALS (10 sets, daily range): BP systolic 125–157; BP diastolic 49–95; PULSE 76–101; RESP 18–24; TEMP 36.4–37.2; O2SAT 94–99
[2021-12-22] MEDS: Divalproex Sodium 250 MG Tablet 500 MG PO ×3 (05:45→21:07)
[2021-12-22] MEDS: Midodrine HCl 5 MG Tablet 10 MG PO ×3 (05:45→21:08)
[2021-12-22] MEDS: 0.9% Saline Lock 10 ML Syringe IV (05:46)
[2021-12-22 05:55] LABS: Hematocrit 27.8 % (37-47); Mean Corp Hgb Conc 32.4 g/dL (32-36); Mean Corpuscular Hgb 32.3 pg (27.0-32.0); Mean Corpuscular Volume 99.6 fL (81-99); Mean Platelet Vol. 9.8 fl (6.2-12.0); POSITIVE COUNT YES; POSITIVE DIFFERENTIAL YES; POSITIVE MORPHOLOGY YES; Platelet Count 117 K/mm3 (150-450); RBC Distribution Width CV 15.5 % (11.6-14.6); RBC Distribution Width SD 56.9 fl (35.1-43.9); Red Blood Count 2.79 M/mm3 (4.2-5.4); White Blood Count 12.2 K/mm3 (4.4-11.0)
[2021-12-22 06:00] LABS: Differential Indicated MANUAL DIFF
[2021-12-22 06:21] LABS: Anion Gap 2 (5-15); BUN 17 mg/dL (7-18); BUN/Creat Ratio 52.6 RATIO (10-20); Calcium,Total 8.2 mg/dL (8.5-10.1); Chloride 112 mmol/L (98-107); Creatinine, Serum 0.32 mg/dL (0.55-1.02); EST Glomerular Filtration Rate 210 mL/min (>60); Est Glom Filt Rate - Afr Amer 254 mL/min (>60); Estimated Creatinine Clearance 50.14 ml/min; Glucose 95 mg/dL (74-106); Sodium Level 143 mmol/L (136-145)
[2021-12-22 06:43] LABS: Lymphocyte 17 % (19-41); Metamyelocyte 2 % (0-1); Monocyte 9 % (0-10); Myelocyte 4 % (0-0); Neutrophil-Band 2 % (0-5); Neutrophil-Segmented 65 % (47-70); Total Cells Counted 100 (MANUAL DIFF)
[2021-12-22 06:44] LABS: Basophil 1 % (0-1); Platelet Estimate SLT DEC (ADEQ)
[2021-12-22 06:45] LABS: Absolute Lymphocyte Count 2.08 X10^3/uL (0.83-4.51); Absolute Neutrophil Count 8.2 X10^3/uL (2.0-7.7); Lymphocyte # 2.08 X10^3/ul (0.83-4.51); Red Cell Morphology NORM C+C NORMAL (NORM C&C)
[2021-12-22] MEDS: Pantoprazole Sodium 40 MG Tablet PO ×2 (09:40→21:08)
[2021-12-22] MEDS: Rivaroxaban 15 MG Tablet PO (09:40)
[2021-12-22] MEDS: Lacosamide 100 MG Tablet 200 MG PO ×2 (09:52→21:09)
--- NOTE | 2021-12-22 09:53 | PCM.PN.ID ---
Physical Exam Narrative Feeling ok, no abd pain, no back pain, no fever Const alert and no apparent distress Resp normal air movement and clear to auscultation bilaterally Cardio regular rate and regular rhythm GI soft to palpation, non-tender and non-distended Skin no rashes or lesions noted ID ID: Route of nutrition/ use of supplements: [] Nutritional Intake: [] IV Site: [] Landa Catheter: [] Assessment & Plan Assessment/Plan (1) Septic shock: (2) Bacteremia: PLAN: Overall improved. Off pressors. Wbc normal. Ucx with ESBL ecoli. Bcx x2 with GNR. Single bcx also with enterococcus. Continue meropenem. Will follow, d/w primary team (3) Altered mental status:
--- NOTE | 2021-12-22 09:55 | CASEMGMT ---
Discharge Bucket Pusher Jeannie Velazquez Central Processing Tech sent over an update on patient to Kendal at [facility]. Jeannie Dixon Discharge Bucket Pusher
[2021-12-22 12:12] LABS: Pathologist Review Reviewed
--- NOTE | 2021-12-22 12:15 | PN.HOSP_ITS ---
Subjective Subjective Patient seen and examined. She is alert but remains confused. Unable to do review of systems due to confusion. SHe has remained off her pressors. Repeat blood cultures negative. Objective Data Objective Data Vital Signs: Vital Signs Temp Pulse Resp BP Pulse Ox O2 Del Method O2 Flow Rate 98.2 F 101 H 18 141/95 H 94 Room Air 1 12/22/21 09:35 12/22/21 11:00 12/22/21 09:35 12/22/21 09:35 12/22/21 09:35 12/22/21 09:35 12/19/21 14:00 Oxygen Flow Rate (L/min) 1 Oxygen Delivery Method Room Air Weight: 227 lb 8.273 oz Body Mass Index (BMI) 34.2 Intake & Output: Intake and Output for Last 24 Hours 12/20/21 12/21/21 12/22/21 23:59 23:59 23:59 Intake Total 1550.12 / 1750.12 1491.5 / 1611.5 760 / 760 Output Total 600 / 600 850 / 850 200 / 200 Balance 950.12 / 1150.12 641.5 / 761.5 560 / 560 Lab / Micro Data Result Diagrams: 12/22/21 05:45 12/22/21 05:45 Labs: Laboratory Results - last 24 hr 12/21/21 03:55: Diff Path Review Reviewed 12/22/21 05:45: WBC 12.2 H, RBC 2.79 L, Hgb 9.0 L, Hct 27.8 L, MCV 99.6 H, MCH 32.3 H, MCHC 32.4, RDW Std Deviation 56.9 H, RDW Coeff of Erica 15.5 H, Plt Count 117 L, MPV 9.8, Neut % (Auto) Not Reportable, Absolute Neuts (auto) 8.2 H, Absolute Lymphs (auto) 2.08, Total Counted 100, Neutrophils % (Manual) 65, Band Neutrophils % 2, Lymphocytes % (Manual) 17 L, Monocytes % (Manual) 9, Basophils % (Manual) 1, Metamyelocytes % 2 H, Myelocytes % 4 H, Diff Path Review May , Platelet Estimate SLT DEC, RBC Morphology NORM C+C 12/22/21 05:45: Sodium 143, Potassium 4.0, Chloride 112 H, Carbon Dioxide 29.0, Anion Gap 2 L, BUN 17, Creatinine 0.32 L, Estim Creat Clear Calc 50.14, Est GFR (MDRD) Af Amer 254, Est GFR (MDRD) Non-Af 210, BUN/Creatinine Ratio 52.6 H, Glucose 95, Calcium 8.2 L Micro: Microbiology 12/17/21 05:30 Blood Culture (Wb) - Left Wrist Blood Culture - Final GNR lactose laserist Enterococcus faecalis 12/20/21 10:40 Blood Culture (Wb) - Right Forearm Blood Culture - Preliminary No growth in 48 hours. 12/20/21 10:30 Blood Culture (Wb) - Pic Blood Culture - Preliminary No growth in 48 hours. 12/17/21 05:20 Urine Catheter - Catheter Urine Culture - Final Escherichia coli 12/17/21 04:42 Blood Culture (Wb) - Anticubital Right Blood Culture - Final Escherichia coli 12/17/21 05:20 Stool Enteric Bacteriology - Final 12/17/21 05:20 Stool C. difficile GDH Antigen & Toxins - Final 12/17/21 05:20 Stool C. difficile DNA Amplification - Final 12/17/21 05:26 Nasal Secretion SARS-CoV-2 Antigen (Rapid) - Final Physical Exam Const alert and no apparent distress Constitutional Narrative: confused, disoriented General Appearance: cooperative, well kempt and well developed Orientation / Consciousness: awake, confused and disoriented Nutritional Appearance: obese HEENT normocephalic, head/scalp atraumatic, moist oral mucous membranes and oropharynx normal Head and Scalp: normocephalic Mouth: oral and palatal mucosa normal Eyes PERRL, EOMs intact bilaterally and conjunctivae normal Neck no lymphadenopathy, supple, no JVD and thyroid normal General: trachea midline Chest inspection of chest normal Resp normal respiratory effort, no retractions, no use of accessory muscles and clear to auscultation bilaterally Auscultation: diminished lung sounds; Negative for rales, rhonchi or wheezes Cardio regular rate, regular rhythm, S1 normal heart sound, S2 normal heart sound, no murmurs, no rub and no gallops Heart Sounds: murmur systolic III/ harsh mid left sternal border GI normal to inspection, nondistended, normoactive bowel sounds, soft to palpation, non-tender and non-distended Extremity normal to inspection, full ROM and no clubbing, cyanosis or edema General Extremity: edema bilateral (2+) lower extremity; Negative for clubbing Skin no rashes or lesions noted Skin Narrative: Dermal atrophy noted General Skin Exam: no breakdown and dermatitis Neuro CN's II-XII intact bilaterally, moves all extremities and no focal motor deficits Neuro Narrative: confused Sensorium / Orientation: awake and alert Psych Psych Narrative: confused. Activity / Motor Behavior: restless Assessment & Plan Assessment/Plan (1) Septic shock: (2) Bacteremia: (3) Altered mental status: PLAN: Plan #Septic shock due to ESBL E coli bacteremia * has remained off levophed. * on midodrine * blood cultures and urine culture growing ESBL E coli. Repeat blood cultures ar negative. ID on board * to continue with meropenem, per ID * #Hypokalemia; resolved #History of DVT: on xarelto #Dementia with behavioral disturbance * remains confused. * will monitor * on xanax prn * #Hypernatremia: resolved #Anxiety and depression: Xanax #History of seizure disorder: On lacosamide and valproic acid DVT prophylaxis: not indicated as she is on xarelto. GI prophylaxis: PPI Disposition; for transfer back to her SNF when medically stable. Charges/Coding Visit Charges Inpatient E&M: 49602 Subs Hosp L2
[2021-12-22] MEDS: Mirtazapine 15 MG Tablet PO (21:08)
[2021-12-23] VITALS (8 sets, daily range): BP systolic 114–135; BP diastolic 48–57; PULSE 73–89; RESP 16–20; TEMP 36.4–37.1; O2SAT 94–100
[2021-12-23 06:15] LABS: Hematocrit 27.3 % (37-47); Hemoglobin 8.8 g/dL (12.0-15.0); Mean Corp Hgb Conc 32.2 g/dL (32-36); Mean Corpuscular Hgb 32.2 pg (27.0-32.0); Mean Platelet Vol. 9.4 fl (6.2-12.0); POSITIVE COUNT YES; POSITIVE DIFFERENTIAL YES; POSITIVE MORPHOLOGY YES; Platelet Count 167 K/mm3 (150-450); RBC Distribution Width CV 15.3 % (11.6-14.6); RBC Distribution Width SD 56.7 fl (35.1-43.9); Red Blood Count 2.73 M/mm3 (4.2-5.4)
[2021-12-23 06:16] LABS: Differential Indicated MANUAL DIFF
[2021-12-23 06:39] LABS: Neutrophil-Band 3 % (0-5); Neutrophil-Segmented 80 % (47-70); Total Cells Counted 100 (MANUAL DIFF)
[2021-12-23 06:40] LABS: Absolute Neutrophil Count 10.8 X10^3/uL (2.0-7.7); Anion Gap 3 (5-15); BUN 15 mg/dL (7-18); BUN/Creat Ratio 36.4 RATIO (10-20); Calcium,Total 8.1 mg/dL (8.5-10.1); Chloride 111 mmol/L (98-107); Creatinine, Serum 0.41 mg/dL (0.55-1.02); EST Glomerular Filtration Rate 159 mL/min (>60); Est Glom Filt Rate - Afr Amer 192 mL/min (>60); Estimated Creatinine Clearance 50.14 ml/min; Glucose 105 mg/dL (74-106); Lymphocyte 7 % (19-41); Metamyelocyte 1 % (0-1); Monocyte 6 % (0-10); Myelocyte 3 % (0-0); Neutrophil # 10.75 X10^3/uL (2.7-7.7); Platelet Estimate ADEQUATE (ADEQ); Potassium 3.9 mmol/L (3.5-5.1); Red Cell Morphology NORM C+C NORMAL (NORM C&C); Sodium Level 143 mmol/L (136-145)
[2021-12-23 06:41] LABS: Absolute Lymphocyte Count 0.91 X10^3/uL (0.83-4.51); Lymphocyte # 0.91 X10^3/ul (0.83-4.51)
[2021-12-23] MEDS: Divalproex Sodium 250 MG Tablet 500 MG PO ×2 (06:42→13:35)
[2021-12-23] MEDS: Pantoprazole Sodium 40 MG Tablet PO (08:59)
[2021-12-23] MEDS: Lacosamide 100 MG Tablet 200 MG PO (08:59)
[2021-12-23] MEDS: Rivaroxaban 15 MG Tablet PO (08:59)
--- NOTE | 2021-12-23 11:31 | DS.PCM_ITS ---
Providers Date of Admission: 12/17/21 Primary Care Physician: Dr. Tien Vivar, Consultations 12/17/21 07:49 Consult: Microfilming Document Preparer / Pulmonary Medicine Routine Consulting Provider: Barrett Melgar Reason for Consult: Hypotensive, Gastro presentation EMERGENT Consult: No Notified: Yes Date Notified: 12/17/21 Time Notified: 06:43 Method of Notification: Text 12/21/21 07:24 Consult: Infectious Disease Routine Consulting Provider: Tien Lane Reason for Consult: ESBL bacteremia EMERGENT Consult: No Notified: Yes Date Notified: 12/21/21 Time Notified: 07:24 Method of Notification: Text Reason For Visit: ENCEPALOPATHY, GASTOENTERITIS/POS CDIF,UTI,WINDY Diagnosis Discharge Diagnosis (1) Septic shock: Status: Acute Code(s): A41.9 - Sepsis, unspecified organism; R65.21 - Severe sepsis with septic shock (2) Bacteremia: Status: Acute Code(s): R78.81 - Bacteremia (3) Altered mental status: Status: Acute Code(s): R41.82 - Altered mental status, unspecified Plan #Septic shock due to ESBL E coli bacteremia * has remained off levophed. * on midodrine * blood cultures and urine culture growing ESBL E coli. Repeat blood cultures ar negative. ID on board * to continue with meropenem, per ID * #Hypokalemia; resolved #History of DVT: on xarelto #Dementia with behavioral disturbance * remains confused. * will monitor * on xanax prn * #Hypernatremia: resolved #Anxiety and depression: Xanax #History of seizure disorder: On lacosamide and valproic acid DVT prophylaxis: not indicated as she is on xarelto. GI prophylaxis: PPI Disposition; for transfer back to her SNF when medically stable. Medications at Discharge Home Medications divalproex 500 mg tablet,delayed release (Depakote) 500 mg PO TID 10/21/18 rivaroxaban 20 mg tablet (Xarelto) 20 mg PO DAILY 10/21/18 zinc gluconate 50 mg tablet 50 mg PO DAILY 10/21/18 alprazolam 0.25 mg tablet 0.25 mg PO BID 12/17/21 buspirone 7.5 mg tablet 7.5 tab TID 12/17/21 carvedilol 3.125 mg tablet 3.125 tab DAILY 12/17/21 lacosamide 200 mg tablet (Vimpat) 200 mg PO BID 12/17/21 mirtazapine 15 mg tablet (Remeron) 15 mg PO QHS 12/17/21 pantoprazole 40 mg tablet,delayed release 40 tab PO BID 12/17/21 ertapenem 1 gram solution for injection 1 g IM Q24H #7 ea 12/23/21 linezolid 600 mg tablet 600 mg PO Q12H #14 tabs 12/23/21 midodrine 5 mg tablet 10 mg PO TID #30 tabs 12/23/21 Hospital Course Operations None Procedures None Summary of Care Provided Minutes Spent on Discharge: 45 Hospital Course: Patient is a 76-year-old female with past medical history as outlined who was admitted from her long term facility on 12/17/2021 with a complaint of hypoxia and confusion as well as increased respiratory rate. She was found to be saturating at 85% and her long term facility and so she was brought to the ED for evaluation. On admission she was also noted to be having profound diarrhea. WBC was elevated at 18 and lactic acid was 1. Blood cultures x2 were ordered CT of the brain showed no acute intracranial pathology and EKG showed no acute ST changes either. C. difficile was negative and stool for enteric pathogens was also negative. She was admitted and managed for acute metabolic encephalopathy and hypotension initially thought to be due to acute infectious gastroenteritis. She was hydrated with fluids. Patient also had WINDY and UTI. Hospital course was complicated by hypotension refractory to IV fluids and so she was treated for septic shock and started on IV Levophed. Her blood cultures came back positive for ESBL and antibiotics were transitioned to meropenem. She was gradually weaned off of the Levophed. She was placed on midodrine which helped with her blood pressure. ID was consulted. Her white cell count trended down and normalized. Diarrhea also resolved. She remained stable and was discharged to his long term facility on 12/23/2021 to be on p.o. Zyvox 600 mg twice daily as well as I am ertapenem for 1 more week. She is to follow-up with her primary care doctor and with infectious diseases. Patient seen and examined prior to discharge. She still remained confused due to her dementia. Unable to do review of systems. Labs and vitals reviewed. Medication reviewed and reconciled. Physical Exam Narrative Const alert and no apparent distress Constitutional Narrative: confused, disoriented General Appearance: cooperative, comfortable, well kempt and well developed Orientation / Consciousness: awake, confused and disoriented Nutritional Appearance: obese HEENT normocephalic, head/scalp atraumatic, moist oral mucous membranes and oropharynx normal Mouth: oral and palatal mucosa normal Eyes PERRL, EOMs intact bilaterally and conjunctivae normal Neck no lymphadenopathy, supple, no JVD and thyroid normal General: trachea midline Chest inspection of chest normal Resp normal respiratory effort, no retractions, no use of accessory muscles and clear to auscultation bilaterally Auscultation: diminished lung sounds; Negative for rales, rhonchi or wheezes Cardio regular rate, S1 normal heart sound, S2 normal heart sound, no murmurs, no rub and no gallops Cardio Narrative: Heart rate and rhythm is irregular Heart Sounds: murmur systolic III/ harsh mid left sternal border GI normal to inspection, nondistended, normoactive bowel sounds, soft to palpation, non-tender and non-distended Extremity normal to inspection, full ROM and no clubbing, cyanosis or edema General Extremity: edema bilateral (2+) lower extremity; Negative for clubbing Skin no rashes or lesions noted General Skin Exam: no breakdown Neuro CN's II-XII intact bilaterally, moves all extremities and no focal motor deficits Neuro Narrative: confused Sensorium / Orientation: awake and alert Psych Psych Narrative: confused. Activity / Motor Behavior: restless Weight / BMI Weight Weight: 226 lb 13.69 oz Body Mass Index (BMI) 34.2 ABG / Lab / Microbiology Data Result Diagrams: 12/23/21 06:03 12/23/21 06:03 Laboratory: Laboratory Results - last 24 hr 12/21/21 03:55: Diff Path Review Reviewed 12/23/21 06:03: WBC 13.0 H, RBC 2.73 L, Hgb 8.8 L, Hct 27.3 L, MCV 100.0 H, MCH 32.2 H, MCHC 32.2, RDW Std Deviation 56.7 H, RDW Coeff of Erica 15.3 H, Plt Count 167, MPV 9.4, Neut % (Auto) Not Reportable, Absolute Neuts (auto) 10.8 H, Absolute Lymphs (auto) 0.91, Total Counted 100, Neutrophils % (Manual) 80 H, Band Neutrophils % 3, Lymphocytes % (Manual) 7 L, Monocytes % (Manual) 6, Metamyelocytes % 1, Myelocytes % 3 H, Diff Path Review October, Platelet Estimate ADEQUATE, RBC Morphology NORM C+C 12/23/21 06:03: Sodium 143, Potassium 3.9, Chloride 111 H, Carbon Dioxide 29.0, Anion Gap 3 L, BUN 15, Creatinine 0.41 L, Estim Creat Clear Calc 50.14, Est GFR (MDRD) Af Amer 192, Est GFR (MDRD) Non-Af 159, BUN/Creatinine Ratio 36.4 H, Glucose 105, Calcium 8.1 L Microbiology: Microbiology 12/17/21 05:30 Blood Culture (Wb) - Left Wrist Blood Culture - Final GNR lactose marketing proposal coordinator Enterococcus faecalis 12/20/21 10:40 Blood Culture (Wb) - Right Forearm Blood Culture - P reliminary No growth in 48 hours. 12/20/21 10:30 Blood Culture (Wb) - Pic Blood Culture - Preliminary No growth in 48 hours. 12/17/21 05:20 Urine Catheter - Catheter Urine Culture - Final Escherichia coli 12/17/21 04:42 Blood Culture (Wb) - Anticubital Right Blood Culture - Final Escherichia coli 12/17/21 05:20 Stool Enteric Bacteriology - Final 12/17/21 05:20 Stool C. difficile GDH Antigen & Toxins - Final 12/17/21 05:20 Stool C. difficile DNA Amplification - Final 12/17/21 05:26 Nasal Secretion SARS-CoV-2 Antigen (Rapid) - Final D/C Instructions Discharge Diet: Low fat / Low cholesterol Discharge Activity: Return to Normal Activity Weight Bearing Status: Weight bearing as tolerated Call your doctor if you observe: Fever of 101 or Higher, Shortness of breath, Dizziness and Swelling in the ankles Meaningful Use Info Meaningful Use Diagnoses (Choose all that apply): None applicable Discharge Plan Admission Admit Date/Time: 12/17/21 06:11 Primary Reason for Your Visit: septic shock, ESBL e coli bacteremia, UTI Attending Provider: Lacey Long Primary Care Provider: Tien Vivar Consulting Providers: Shawna Yanez ; Mike Sandoval ; Tien Lane ; Barrett Melgar Discharge Orders/Prescriptions Prescriptions: New ertapenem 1 gram recon soln 1 g IM Q24H Qty: 7 0RF Rx Instructions: dx: esbl infection linezolid 600 mg tablet 600 mg PO Q12H Qty: 14 0RF midodrine 5 mg Tablet 10 mg PO TID Qty: 30 0RF Continued divalproex [Depakote] 500 MG tablet,delayed release (DR/EC) 500 mg PO TID zinc gluconate 50 MG tablet 50 mg PO DAILY Xarelto 20 MG tablet 20 mg PO DAILY carvedilol 3.125 mg tablet 3.125 tab DAILY alprazolam 0.25 mg Tablet 0.25 mg PO BID pantoprazole 40 mg tablet,delayed release (DR/EC) 40 tab PO BID mirtazapine [Remeron] 15 mg Tablet 15 mg PO QHS lacosamide [Vimpat] 200 mg Tablet 200 mg PO BID Held buspirone 7.5 mg tablet 7.5 tab TID Hold Instructions: Resume on 12/29/21. Referrals / Follow Up: Tien Lane MD [STAFF PHYSICIAN] - Within 2 Weeks Tien iVvar DO [Primary Care Provider] - Within 2 Weeks Disposition Disposition (needs filled in before D/C Order can be placed): [facility] Facility Charges/Coding Visit Charges Inpatient E&M: 64664 Disch Hosp
--- NOTE | 2021-12-23 11:49 | TREXTCAR_ITS ---
Diet Diet Order/Speech Therapy: 12/19/21 09:14 Diet: Regular - No Added Salt Food consistency:: Soft & Bite Sized Liquid Consistency:: Regular/Thin Type of Dietary Supplement:: magic cup bid w/ L&D Is pt able to select menu?: No Diet Comments: NO STRAWS, Sup. at meals/assist, check for pocketing, oral care after meals Routine Orders/Code Status Enema Type: Fleetz Enema Frequency: Daily PRN Suppository Type: Dulcolax 10mg Suppository Frequency: Daily PRN Wound(s) coccyx: Wound Type: blisters Therapies Weight Bearing: Weight bearing as tolerated Physical Therapy: Eval and Treat Occupational Therapy: Eval and Treat Problem/Diagnosis (1) Septic shock: Status: Acute Code(s): A41.9 - Sepsis, unspecified organism; R65.21 - Severe sepsis with septic shock (2) Bacteremia: Status: Acute Code(s): R78.81 - Bacteremia (3) Altered mental status: Status: Acute Code(s): R41.82 - Altered mental status, unspecified Plan #Septic shock due to ESBL E coli bacteremia * has remained off levophed. * on midodrine * blood cultures and urine culture growing ESBL E coli. Repeat blood cultures ar negative. ID on board * to continue with meropenem, per ID * #Hypokalemia; resolved #History of DVT: on xarelto #Dementia with behavioral disturbance * remains confused. * will monitor * on xanax prn * #Hypernatremia: resolved #Anxiety and depression: Xanax #History of seizure disorder: On lacosamide and valproic acid DVT prophylaxis: not indicated as she is on xarelto. GI prophylaxis: PPI Disposition; for transfer back to her SNF when medically stable. Allergies/Procedures Done in Hospital Allergies Penicillins Allergy (Verified 12/17/21 06:09) Unknown Sulfa (Sulfonamide Antibiotics) Allergy (Verified 12/17/21 06:09) Unknown Type of Care/Length of Stay Estimated LOS: Convalescent Care Less Than 30 days Type of Care Needed: Skilled Rehab Potential: Fair Prognosis: Fair Additional Orders/Day of Discharge Day of Discharge: 12/23/21 Dietary and Speech Recommendations Dietitian Recommendations/Changes: Continue regular, no added salt diet. Texture/consistency modifications per EXECUTIVE PERSONAL ASSISTANT. 120mL ensure enlive 4x/day w/ medpass and magic cup BID for additional calories/protein if consumed Discharge Plan Admission Admit Date/Time: 12/17/21 06:11 Primary Reason for Your Visit: septic shock, ESBL e coli bacteremia, UTI Attending Provider: Lacey Long Primary Care Provider: Tien Vivar Consulting Providers: Shawna Yanez ; Mike Sandoval ; Tien Lane ; Barrett Melgar Discharge Orders/Prescriptions Prescriptions: New ertapenem 1 gram recon soln 1 g IM Q24H Qty: 7 0RF Rx Instructions: dx: esbl infection linezolid 600 mg tablet 600 mg PO Q12H Qty: 14 0RF midodrine 5 mg Tablet 10 mg PO TID Qty: 30 0RF Continued divalproex [Depakote] 500 MG tablet,delayed release (DR/EC) 500 mg PO TID zinc gluconate 50 MG tablet 50 mg PO DAILY Xarelto 20 MG tablet 20 mg PO DAILY carvedilol 3.125 mg tablet 3.125 tab DAILY alprazolam 0.25 mg Tablet 0.25 mg PO BID pantoprazole 40 mg tablet,delayed release (DR/EC) 40 tab PO BID mirtazapine [Remeron] 15 mg Tablet 15 mg PO QHS lacosamide [Vimpat] 200 mg Tablet 200 mg PO BID Held buspirone 7.5 mg tablet 7.5 tab TID Hold Instructions: Resume on 12/29/21. Referrals / Follow Up: Tien Lane MD [STAFF PHYSICIAN] - Within 2 Weeks Tien Vivar DO [Primary Care Provider] - Within 2 Weeks Disposition Disposition (needs filled in before D/C Order can be placed): [facility]
--- NOTE | 2021-12-23 12:10 | PCM.PN.ID ---
Physical Exam Narrative Sleeping this AM, no fever Const no apparent distress Resp normal air movement and clear to auscultation bilaterally Cardio regular rate and regular rhythm GI soft to palpation, non-tender and non-distended Skin no rashes or lesions noted ID ID: Route of nutrition/ use of supplements: [] Nutritional Intake: [] IV Site: [] Landa Catheter: [] Assessment & Plan Assessment/Plan (1) Septic shock: (2) Bacteremia: PLAN: Overall improved. Off pressors. Wbc normal. Ucx with ESBL ecoli. Bcx x2 with ecoli. Single bcx also with enterococcus. Ok for d/c with one more week IM ertapenem and po linezolid; will hold buspirone while on linezolid. Wrote rx. Will follow, d/w home health care case manager (3) Altered mental status:
--- NOTE | 2021-12-23 12:59 | CASEMGMT ---
Addendum entered by Maricruz Luis 12/23/21 13:15: ARABELLA e-mailed patient's negative COVID test to [facility]. Maricruz SINCLAIR Original Note: Patient is ready to return to [facility] ([facility]). ARABELLA arranged for patient to get picked up at 1400 via cot by [facility]. ARABELLA e-mailed orders and vegetable picker time of 2p to [facility]. SW will send COVID test once resulted. ARABELLA notified RN and social secretary. ARABELLA attempted to call patient's , but there was no answer and no identifying information on the voice mail. Message was not left. Plan: d/c back to [facility] under intermediate level of care. Maricruz SINCLAIR
[2021-12-23 13:04] LABS: Pathologist Review Reviewed
[2021-12-23 13:08] LABS: Pathologist Review Reviewed
[2021-12-23] MEDS: Midodrine HCl 5 MG Tablet 10 MG PO (13:35)
[2021-12-23] MEDS: Linezolid 600 MG Tablet PO (13:35)
--- NOTE | 2021-12-23 14:16 | NURSING ---
Report called to TERRY Duenas at 1408 at [facility].
== END 2021-12-23 15:00 | disposition skilled nursing facility (03) | DRG 871 ==
LOC: ED 05:58 → PCU 06:07 → ICU 12-19 07:18 → PCU 12-21 16:28
PROVIDERS: Internal Medicine; Admitting Provider Family Medicine; Emergency Provider Emergency Medicine; PCP Preventive Medicine Occupational Medicine; Visit Provider Student in an Organized Health Care Education/Training Program
DX: A41.51 Sepsis due to Escherichia coli [E. coli] (principal); R65.21 Severe sepsis with septic shock; G93.41 Metabolic encephalopathy; N17.9 Acute kidney failure, unspecified; F03.91 Unspecified dementia, unspecified severity, with behavioral disturbance; E87.0 Hyperosmolality and hypernatremia; A09 Infectious gastroenteritis and colitis, unspecified; N39.0 Urinary tract infection, site not specified; Z16.12 Extended spectrum beta lactamase (ESBL) resistance; D69.59 Other secondary thrombocytopenia; I95.9 Hypotension, unspecified; I48.91 Unspecified atrial fibrillation; G40.909 Epilepsy, unspecified, not intractable, without status epilepticus; A41.9 Sepsis, unspecified organism; E86.0 Dehydration; D64.9 Anemia, unspecified; F41.9 Anxiety disorder, unspecified; I10 Essential (primary) hypertension; K21.9 Gastro-esophageal reflux disease without esophagitis; E87.6 Hypokalemia; F32.A Depression, unspecified; R09.02 Hypoxemia; R73.9 Hyperglycemia, unspecified; E66.9 Obesity, unspecified; Z66 Do not resuscitate; Z20.822 Contact with and (suspected) exposure to COVID-19; Z79.01 Long term (current) use of anticoagulants; Z79.899 Other long term (current) drug therapy; Z96.642 Presence of left artificial hip joint; Z68.35 Body mass index [BMI] 35.0-35.9, adult
CPT/HCPCS: 36415; 36569; 70450; 71045; 80048; 80053; 80164; 81001; 83036; 83605; 83735; 83880; 84100; 84145; 84484; 85025; 87040; 87077; 87086; 87088; 87186; 87426; 87493; 87506; 87811; 92507; 92526; 92610; 93005; 97110; 97162; 97166; 97530; 97535; 97803; 99251; 99285; J2185; J7030; J7040; J7050; A4216; C9254; G0463; J3490

== ENCOUNTER → 2022-01-10 | Outpatient (REF) | payer SELFPAY ==
[2022-01-10 08:20] LABS: Hematocrit 26.2 % (37-47); Hemoglobin 8.1 g/dL (12.0-15.0); Mean Corp Hgb Conc 30.9 g/dL (32-36); Mean Corpuscular Hgb 31.8 pg (27.0-32.0); Mean Corpuscular Volume 102.7 fL (81-99); Mean Platelet Vol. 9.8 fl (6.2-12.0); Platelet Count 256 K/mm3 (150-450); RBC Distribution Width CV 15.2 % (11.6-14.6); RBC Distribution Width SD 57.5 fl (35.1-43.9); Red Blood Count 2.55 M/mm3 (4.2-5.4); White Blood Count 5.7 K/mm3 (4.4-11.0)
[2022-01-10 08:36] LABS: Anion Gap 4 (5-15); BUN 12 mg/dL (7-18); BUN/Creat Ratio 19.1 RATIO (10-20); Calcium,Total 8.9 mg/dL (8.5-10.1); Chloride 106 mmol/L (98-107); Creatinine, Serum 0.63 mg/dL (0.55-1.02); EST Glomerular Filtration Rate 98 mL/min (>60); Est Glom Filt Rate - Afr Amer 118 mL/min (>60); Glucose 92 mg/dL (74-106); Potassium 4.1 mmol/L (3.5-5.1); Sodium Level 141 mmol/L (136-145)
== END ==
LOC: OLS.WCC 05:00
PROVIDERS: PCP Preventive Medicine Occupational Medicine; Visit Provider Family Medicine
DX: N39.0 Urinary tract infection, site not specified (principal); I10 Essential (primary) hypertension; A41.9 Sepsis, unspecified organism
CPT/HCPCS: 36415; 80048; 85027

== ENCOUNTER → 2022-01-24 | Outpatient (REF) | payer SELFPAY | LOC: OLS.WCC 06:49 | PROVIDERS: PCP Preventive Medicine Occupational Medicine; Visit Provider Family Medicine | DX: Z79.899 Other long term (current) drug therapy (principal) ==

== ENCOUNTER → 2022-02-03 | Outpatient (REF) | payer MEDICARE, MEDICAID, SELFPAY ==
[2022-02-03 08:25] LABS: Hematocrit 27.4 % (37-47); Hemoglobin 8.4 g/dL (12.0-15.0); Mean Corp Hgb Conc 30.7 g/dL (32-36); Mean Corpuscular Hgb 30.5 pg (27.0-32.0); Mean Corpuscular Volume 99.6 fL (81-99); Mean Platelet Vol. 10.1 fl (6.2-12.0); Platelet Count 331 K/mm3 (150-450); RBC Distribution Width CV 15.3 % (11.6-14.6); RBC Distribution Width SD 55.7 fl (35.1-43.9); Red Blood Count 2.75 M/mm3 (4.2-5.4); White Blood Count 9.7 K/mm3 (4.4-11.0)
[2022-02-03 08:53] LABS: Anion Gap 5 (5-15); BUN 18 mg/dL (7-18); BUN/Creat Ratio 28.5 RATIO (10-20); Calcium,Total 9.2 mg/dL (8.5-10.1); Chloride 106 mmol/L (98-107); Creatinine, Serum 0.63 mg/dL (0.55-1.02); EST Glomerular Filtration Rate 97 mL/min (>60); Est Glom Filt Rate - Afr Amer 117 mL/min (>60); Glucose 78 mg/dL (74-106); Sodium Level 143 mmol/L (136-145); Valproic Acid (Depakene) Level 66 ug/mL (50-100)
== END ==
LOC: OLS.WCC 05:00
PROVIDERS: PCP Preventive Medicine Occupational Medicine; Visit Provider Family Medicine
DX: R53.83 Other fatigue (principal); I10 Essential (primary) hypertension; G40.509 Epileptic seizures related to external causes, not intractable, without status epilepticus; Z79.899 Other long term (current) drug therapy
CPT/HCPCS: 36415; 80048; 80164; 85027

== ENCOUNTER → 2022-03-06 | Outpatient (REF) | payer MEDICARE, MEDICAID, SELFPAY ==
[2022-03-06 10:00] LABS: Hematocrit 30.4 % (37-47); Hemoglobin 9.1 g/dL (12.0-15.0); Mean Corp Hgb Conc 29.9 g/dL (32-36); Mean Corpuscular Hgb 28.8 pg (27.0-32.0); Mean Corpuscular Volume 96.2 fL (81-99); Mean Platelet Vol. 9.9 fl (6.2-12.0); Platelet Count 398 K/mm3 (150-450); RBC Distribution Width CV 15.4 % (11.6-14.6); RBC Distribution Width SD 54.8 fl (35.1-43.9); Red Blood Count 3.16 M/mm3 (4.2-5.4); White Blood Count 12.3 K/mm3 (4.4-11.0)
[2022-03-06 10:27] LABS: Anion Gap 7 (5-15); BUN 22 mg/dL (7-18); BUN/Creat Ratio 30.9 RATIO (10-20); Calcium,Total 9.3 mg/dL (8.5-10.1); Chloride 109 mmol/L (98-107); Creatinine, Serum 0.71 mg/dL (0.55-1.02); EST Glomerular Filtration Rate 84 mL/min (>60); Est Glom Filt Rate - Afr Amer 102 mL/min (>60); Glucose 89 mg/dL (74-106); Potassium 4.1 mmol/L (3.5-5.1); Sodium Level 144 mmol/L (136-145)
== END ==
LOC: OLS.WCC 05:00
PROVIDERS: PCP Preventive Medicine Occupational Medicine; Visit Provider Family Medicine
DX: R53.83 Other fatigue (principal); I10 Essential (primary) hypertension; Z79.899 Other long term (current) drug therapy
CPT/HCPCS: 36415; 80048; 85027